=== PATIENT | male | born 1945 | race Caucasian/White ===

== ENCOUNTER 2016-06-05 11:41 | Emergency (ER) | payer OTHER ==
[~2016-06-05] VITALS: Ht 172.7 cm; Wt 81.6 kg
[2016-06-05 11:46] VITALS: BP 186/98
--- NOTE | 2016-06-05 12:12 | ED HEAD/FACIAL INJ COMPLAINT ---
History of Present Illness General Chief Complaint: Laceration Procedure Stated Complaint: HEAD LAC Source: patient, old records Exam Limitations: no limitations Vital Signs & Intake/Output Vital Signs & Intake/Output Vital Signs Date Time Temp Pulse Resp B/P Pulse O2 O2 Flow FiO2 Ox Delivery Rate 06/05 1146 97.0 99 18 186/98 100 Room Air ED Intake and Output 06/06 0000 06/05 1200 Intake Total Output Total Balance Patient 180 lb Weight Allergies Coded Allergies: peanut (Severe, ANAPHYLAXIS 06/05/16) Triage Note: 70 LACERATION TO FOREHEAD. PER NURSE SAMIR, UNABLE TO COMPLETE CRANIAL NERVE EXAM DUE TO PT BEING HARD OF HEARING - SENT TO ED FOR FURTHER EVAL AND POSSIBLE CT SCAN. PT STATES GARAGE DOOR "KICKED BACK AND HIT ME. I PUT A BAND AID ON IT BUT THEY HAVE RULES AND SENT ME HERE". NO BLEEDING NOTED ON DRESSING. PT UNSURE OF LAST TETANUS. PT ABLE TO LIP READ AND COMMUNICATE VIA WRITING WITH THIS RN. Triage Nurses Notes Reviewed? yes Onset: Abrupt Severity: mild Severity Numbers: 1 Location: frontal Method of Injury: direct blow Loss of Consciousness: no loss of consciousness Associated Symptoms: denies HPI: 70-year-old male presents emergency room status post sustaining avulsion injury to his left forehead just prior to arrival at work. He states he was standing too close to a garage door that he had lifted up and had come back down on his head. There is no loss of consciousness he did not fall to the ground. He's been complaining of mild aching pain to his forehead since. No headache he is not taken anything for symptoms no nausea no vomiting or vision changes neck or back pain. Patient states that he went to occupational health hours sent here for further workup. He states that he does not want to be here, that he feels fine and he just wants a "aspirin and to be let go" (HUGO COOK) Past History Travel History Traveled to [place] past 21 day No Medical History Any Pertinent Medical History? see below for history Neurological: NONE EENT: NONE Cardiovascular: NONE Respiratory: asthma Gastrointestinal: NONE Hepatic: NONE Renal: NONE Musculoskeletal: NONE Psychiatric: NONE Endocrine: NONE Blood Disorders: NONE Cancer(s): prostate cancer Surgical History Surgical History: none Psychosocial History What is your primary language Icelandic Tobacco Use: Never used Family History Hx Contributory? No (HUGO COOK) Review of Systems Review of Systems Constitutional: Reports: see HPI. All Other Systems: Reviewed and Negative Comments Review of systems: See HPI, All other systems negative. Constitutional, no chills no fever, no malaise HEENT: No visual changes no sore throat no congestion Cardiovascular: No chest pain , no palpitation Skin, no rashes, no change in skin Respiratory: No dyspnea no cough no sputum GI: No nausea no vomiting, no diarrhea, : No dysuria Muscle skeletal: No joint pain, no back pain, no neck pain, Neurologic: No numbness no headache Psych: No stress Heme/endocrine: No bruising no bleeding Immunology: No lymphadenopathy (HUGO COOK) Physical Exam Physical Exam General Appearance: well developed/nourished, no apparent distress, alert Cranial Nerves: normal hearing, normal speech, PERRL Comments: Well-developed well-nourished patient in no apparent distress. Head/Face: 1 cm superficial skin abrasion avulsion noted to the left forehead there is no scalp hematoma no active bleeding nontender no deformity versus scalp and face are atraumatic no raccoon eyes or maldonado signs, no maxillary/ frontal sinus tenderness, no facial swelling Eyes: PERRL, EOMI, no conjunctival injection. No nystagmus Ear:External auditory canal and Tympanic membranes clear, no erythema, no FB. No hemotympanum Nose: atraumatic.Normal inspection: No bleeding, no septal hematoma Throat: Moist mucous membranes.Pharynx normal. No pharyngeal erythema/exudate seen. No stridor/drooling or assymetry. No swelling or edema. Neck: Supple, no lymphadenopathy, FROM Back: FROM, Nontender Cardiovascular: Regular rate and rhythms Respiratory: No respiratory distress. Patient speaking in full complete sentences. Breath sounds clear to auscultation bilaterally: NO W/R/R Extremities: full range of motion Neuro: Alert and oriented x3 Skin: Warm & dry;No appreciable rash on exposed skin Psych: Mood affect normal, normal memory normal judgment. (HUGO COOK) Progress Differential Diagnosis: c-spine injury, facial fracture, globe injury, ICH, skull fracture Plan of Care: Current Medications Sig/Tree Start time Last Medication Dose Stop Time Status Admin Ibuprofen 800 MG ONCE ONE 06/05 1230 UNVr (Motrin) 06/05 1231 Tetanus/Diphtheria 0.5 ML ONCE ONE 06/05 1230 UNVr Toxoids Adsorbed 06/05 1231 (Decavac) Patient states she was sent here for CAT scan however is refusing a discussed with him given his injury nontender no headache no loss of consciousness no nausea no vomiting or change in his mental status that I do not believe at this point he would warn 1 however if he begins to exhibit headaches nausea vomiting or any other symptoms that I discussed with him need to return immediately Tylenol Motrin. Bacitracin sterile dressing was applied. I answered all his questions and he feels comfortable with this plan tetanus IM ordered (HUGO COOK) Departure Departure Time of Disposition: 1216 Disposition: HOME OR SELF CARE Condition: Stable Clinical Impression Primary Impression: Skin avulsion Secondary Impressions: Minor head injury Referrals: KEYNETTA CHAVEZ,JÚNIOR Hinton (PCP/Family) Additional Instructions: Rest, ice, Tylenol Motrin as needed. Follow-up with yourr primary care physician, returns to ER anytime sooner if your symptoms worsen you develop headache nausea vomiting vision changes or any other concerns Departure Forms: Customer Survey General Discharge Information (HUGO COOK) PA/SMALL EQUIPMENT OPERATOR Co-Sign Statement Statement: ED Attending supervision documentation- [X] I saw and evaluated the patient. I have also reviewed all the pertinent lab results and diagnostic results. I agree with the findings and the plan of care as documented in the PA's/SMALL EQUIPMENT OPERATOR's documentation. [X] I have reviewed the ED Record and agree with the PA's/SMALL EQUIPMENT OPERATOR's documentation. [] Additions or exceptions (if any) to the PAs/SMALL EQUIPMENT OPERATOR's note and plan are summarized below: [] (MICHELLE CHAVEZ,ROBERTO)
== END 2016-06-05 12:44 ==
LOC: ERH 11:41
DX: S01.81XA Laceration without foreign body of other part of head, initial encounter (principal); S09.90XA Unspecified injury of head, initial encounter; W22.8XXA Striking against or struck by other objects, initial encounter
CPT/HCPCS: 90471; 90714

== ENCOUNTER 2017-04-28 12:07 | Inpatient (IN) | payer OTHER ==
[~2017-04-28] VITALS: Ht 172.7 cm; Wt 82.8 kg
--- NOTE | 2017-04-28 12:53 | ED SYNCOPE COMPLAINT ---
History of Present Illness General Chief Complaint: Syncope and Near-Syncope Stated Complaint: BIBA SYNCOPE Source: patient, family Exam Limitations: physical impairment (DEAF) Allergies Coded Allergies: peanut (Severe, ANAPHYLAXIS 04/28/17) Triage Note: PT LEO FROM WORK AT [employer]. PER REPORT OF EMS OTHER STAFF HEARD A THUMP AND FOUND HIM ON THE FLOOR DAZED. EMS REPORT THAT THEY WERE TOLD THAT HE HAD BEEN SEWING AT THE TIME OF INCIDENT. ALSO PER EMS PATIENT WAS INITIALLY DIAPHORETIC, HAD COMPLAINED OF CHEST PAIN AND WAS GIVEN 324 MG ASA. F/S 324 FOR EMS. PT ALERT AND ORIENTED ON ARRIVAL. READS LIPS OR WRITTEN WORD FOR COMMUNICATING HE IS DEAF. PT COMPLAINS ONLY OF PAIN TO BACK OF R UPPER LEG. RATES PAIN 8-10. STATES PAIN STARTED AFTER THE FALL. PATIENT STATES THAT HE WAS WALKING OUT OF THE BATHROOM WHEN HE TRIPPED AND FELL. DENIES HITTING HEAD. DENIES FEELING DIZZY OR LIGHTHEADED BEFORE FALLING BUT DID AFTER FALL. JOHN VELAZQUEZ INTO EVALUATE PATIENT ON ARRIVAL TO ER. EKG DONE BY [facility]. PATIENT SISTERS AT BEDSIDE. Triage Nurses Notes Reviewed? yes Timing: recent history Precipitating Factors: none Loss of Consciousness: unsure HPI: 71-year-old male comes into the emergency room for further evaluation of syncopal episode that occurred at work. The story is unclear and we are getting a mixture of different stories. According to ambulance they report the people at work heard a thud and found the patient in the next room on the ground unresponsive and not alert at all. Ambulance was called. According to the gauge maker apprentice when the S crew arrived on scene the patient was unresponsive but had a pulse and was disoriented. Patient is deaf and history is somewhat limited. Patient reports that she tripped. There were reports of chest pain on scene but he denies any chest pain currently. Denies any fever chills vomiting. Patient is unsure whether he had any loss of consciousness. Patient's primary complaint is right leg pain that started after the fall. (Julio Cesar LOPEZ,P[place]) Vital Signs & Intake/Output Vital Signs & Intake/Output Vital Signs Date Time Temp Pulse Resp B/P B/P Pulse O2 O2 Flow FiO2 Mean Ox Delivery Rate 04/28 1345 Room Air Room Air 04/28 1211 97.5 88 20 101/64 99 Room Air (Dolores CHAVEZ,Tasha Arrington) Past History Travel History Traveled to [place] past 21 day No Medical History Any Pertinent Medical History? 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 No (P[place] Disla) Review of Systems Review of Systems Constitutional: Reports: no symptoms. EENTM: Reports: no symptoms. Respiratory: Reports: no symptoms. Cardiovascular: Reports: no symptoms. GI: Reports: no symptoms. Genitourinary: Reports: no symptoms. Musculoskeletal: Reports: see HPI. Skin: Reports: no symptoms. Neurological/Psychological: Reports: no symptoms. All Other Systems: Reviewed and Negative ([place] Disla) Physical Exam Physical Exam General Appearance: well developed/nourished, no apparent distress, alert, awake Head: atraumatic, normal appearance Eyes: Bilateral: normal appearance. Ears, Nose, Throat: normal ENT inspection, hearing grossly normal Neck: normal inspection Respiratory: normal breath sounds, no respiratory distress Cardiovascular: regular rate/rhythm Back: normal inspection Extremities: normal inspection, SOFT TISSUE TENDERNESS OVER RIGHT LEG, LIMITED RANGE OF MOTION, Psychiatric: awake, alert, oriented x 3 Cranial Nerves: normal hearing, normal speech, PERRL Coordination/Gait: normal gait Motor/Sensory: no motor/sensory deficits Skin: intact, normal color Core Measures ACS in differential dx? Yes CVA/TIA Diagnosis: No Sepsis Present: No Sepsis Focused Exam Completed? No ([place] Disla) Progress Differential Diagnosis: AMI, aortic dissection, aortic valve, drug induced syncope, hyperventilation, orthostatic syncope, other valvular disease, pacemaker malfunction, pericardial tamponade, pulmonary embolus, seizure, sick sinus syndrome, subarachnoid hem., TIA/CVA, vasodepressor syncope, ventricular tach/fib Diagnostic Imaging: Viewed by Me: Radiology Read, CT Scan. Discussed w/RAD: Radiology Read, CT Scan. Radiology Impression: PATIENT: NICK SANTIZO PRESENT AGE: 71 PATIENT ACCOUNT NO: [id number] : 47 LOCATION: [facility] ORDERING PHYSICIAN: [place] LOPEZ SERVICE DATE: 04/28/17 EXAM TYPE: RAD - XRY-AP PELVIS; XRY-CHEST XRAY, TWO VIEWS; XRY-HIP 2-3 VIEWS, RIGHT EXAMINATION: XR PELVIS XR RIGHT HIP XR CHEST CLINICAL INFORMATION: Trauma. Fall. Evaluate for fracture. COMPARISON: None TECHNIQUE: Frontal and lateral views of the chest performed on 3 images. Frontal and lateral views of the right hip performed on 3 images. Frontal view of the pelvis. FINDINGS: CHEST X-RAY: The cardiomediastinal silhouette is enlarged. Lungs bilaterally are symmetrically expanded and demonstrate low lung volumes with mild bibasilar subsegmental atelectasis. No focal consolidation, effusion or pneumothorax is seen. Diffuse osteopenia is seen with multilevel moderate vertebral spurring in the mid and lower thoracic spine. Mild degenerative changes as seen at the glenohumeral and acromioclavicular joints. Mild gaseous distention of the stomach and bowel loops in the upper abdomen is noted. No definite acute fracture of the thoracic spine or the visualized ribs is seen. PELVIS AND RIGHT HIP: The bony pelvis is intact. No acute fracture or dislocation is seen. Both hip joints are normally located and intact. No significant degenerative changes in the hips are seen. There are mild degenerative changes seen at the sacroiliac joints bilaterally. Pubic symphysis is intact. IMPRESSION: 1. Enlarged cardiac mediastinal silhouette. 2. Low lung volumes with mild bibasilar subsegmental atelectasis. 3. Degenerative changes in the spine and shoulders. No definite acute fracture is seen in the chest. 4. No fracture of the pelvis or right hip. 5. Mild degenerative change at the sacroiliac joints. DICTATED BY: Ashlyn Harvey MD DATE/TIME DICTATED:04/28 VIOLIN REPAIRER:ERENDIRA DATE/TIME TRANSCRIBED:04/28/171415 CONFIDENTIAL, DO NOT COPY WITHOUT APPROPRIATE AUTHORIZATION. <Electronically signed in Other Vendor System> SIGNED BY: Ashlyn Harvey MD 04/28/17 1424 , PATIENT: NICK SANTIZO PRESENT AGE: 71 PATIENT ACCOUNT NO: [id number] : 47 LOCATION: [facility] ORDERING PHYSICIAN: [place] LOPEZ SERVICE DATE: 04/28/17 EXAM TYPE: CAT - CT HEAD WO IV CONTRAST EXAMINATION: CT HEAD WITHOUT CONTRAST CLINICAL INFORMATION: Fall. Pain. Rule out trauma. COMPARISON: None TECHNIQUE: Contiguous axial imaging was performed from the skull base to vertex without intravenous administration of contrast. DLP: 620.92 mGy-cm FINDINGS: There is no evidence of acute intracranial hemorrhage or territorial infarction. No abnormal mass effect or midline shift is seen. Irvin to white matter differentiation is well preserved. No extra-axial fluid collections are identified. The ventricles and sulci are mildly enlarged, consistent with involutional changes. Diffuse mild periventricular deep white matter low-attenuation is seen, consistent with ischemic small vessel disease. Calcification of the anterior falx is seen, possibly due to a small subdural meningioma (series 2, image 27). The patient is status post bilateral lens extractions. The osseous structures and soft tissues are normal. Mild mucosal thickening of the ethmoid air cells, frontal sinuses and right axillary sinus is seen. Small nasal septal spur is seen projecting into the right nasal cavity. The mastoid air cells and visualized portions of the paranasal sinuses are otherwise unremarkable. IMPRESSION: 1. No acute intracranial pathology. 2. Mild involutional changes and findings of ischemic small vessel disease. 3. Calcification of the anterior falx, possibly due to small subdural meningioma. 4. Mild mucosal disease in the sinuses as discussed above. DICTATED BY: Ashlyn Harvey MD DATE/TIME DICTATED:04/28/171344 VIOLIN REPAIRER:ERENDIRA DATE/TIME TRANSCRIBED:04/28/171344 CONFIDENTIAL, DO NOT COPY WITHOUT APPROPRIATE AUTHORIZATION. <Electronically signed in Other Vendor System> SIGNED BY: Ashlyn Harvey MD 04/28/17 1357 Initial ED EKG: normal sinus rhythm, rate (84) (Julio Cesar LOPEZ,[place]) Plan of Care: Orders Procedure Date/time Status Heart Healthy Diet 04/[address] in observation 04/28 1432 Active ED Holding Orders 04/28 1432 Active Vital Signs 04/28 1432 Active Code Status 04/28 1432 Active Telemetry/Balancing Machine Set Up Worker 04/28 1209 Active TROPONIN LEVEL 04/28 120 Complete COMPREHENSIVE METABOLIC PANEL 04/28 1209 Complete CBC WITHOUT DIFFERENTIAL 04/28 1208 Complete EKG 04/28 1208 Active Laboratory Tests 04/28/17 1300: Anion Gap 13, Estimated GFR > 60, BUN/Creatinine Ratio 22.2, Glucose 124 H, Calcium 8.9, Total Bilirubin 0.5, AST 29, ALT 20 L, Alkaline Phosphatase 95, Troponin I < 0.01, Total Protein 7.1, Albumin 3.9, Globulin 3.2, Albumin/ Globulin Ratio 1.2, CBC w Diff NO MAN DIFF REQ, RBC 4.50 L, MCV 87.2, MCH 28.9, MCHC 33.2, RDW 13.5, MPV 7.3 L, Gran % 62.9, Lymphocytes % 21.8, Monocytes % 14.0 H, Eosinophils % 0.9, Basophils % 0.4, Absolute Granulocytes 3.2, Absolute Lymphocytes 1.1 L, Absolute Monocytes 0.7 H, Absolute Eosinophils 0, Absolute Basophils 0 (Tasha Bernal MD) Departure Departure Disposition: STILL A PATIENT Condition: Stable Clinical Impression Primary Impression: Syncope and collapse Referrals: Vera CHAVEZ,Monica Hinton (PCP/Family) Departure Forms: Customer Survey General Discharge Information (P[place] Disla) Observation Note Spoke With: Giuliana Land MD Physician Advisor Notified: TASHA BERNAL MD Place Patient In: Non-ED OBS Care Area Rationale for Observation: My rational for observation is as follows [TELE MONITORING, CARDIOLOGY CONSULTAITON, SERIAL ENZYMES]. PA/CHISELER HEAD Co-Sign Statement Statement: ED Attending supervision documentation- [X] I saw and evaluated the patient. I have also reviewed all the pertinent lab results and diagnostic results. I agree with the findings and the plan of care as documented in the PA's/CHISELER HEAD's documentation. [X] I have reviewed the ED Record and agree with the PA's/CHISELER HEAD's documentation. [] Additions or exceptions (if any) to the PAs/CHISELER HEAD's note and plan are summarized below: [] (Tasha Bernal MD) ED Attending Observation Initial Observation Note: I have seen and personally examined NICK SANTIZO on 04/28/17 at 1340. I agree with the current emergency department documentation. The disposition (admission or discharge) is uncertain at this time, he needs a period of observation for the following reason(s): The ED Nurse caring for this patient has been personally informed as to what the patient is being observed for. ([place] Disla)
[2017-04-28 13:26] LABS: ABSOLUTE BASOPHIL COUNT 0 /CUMM (0.0-0.2); ABSOLUTE EOSINOPHIL COUNT 0 /CUMM (0.0-0.7); ABSOLUTE GRANULOCYTE CT 3.2 /CUMM (1.4-6.5); ABSOLUTE LYMPH COUNT 1.1 /CUMM (1.2-3.4); ABSOLUTE MONOCYTE COUNT 0.7 /CUMM (0.10-0.60); BASOPHIL % 0.4 % (0.0-2.0); EOSINOPHIL % 0.9 % (0-5); GRANULOCYTE % 62.9 % (42.2-75.2); HEMATOCRIT 39.3 % (42-52); MEAN CORPUSCULAR HGB 28.9 PG (27.0-31.0); MEAN CORPUSCULAR HGB CONC 33.2 G/DL (33.0-37.0); MEAN CORPUSCULAR VOLUME 87.2 FL (80.0-94.0); MEAN PLATELET VOLUME 7.3 FL (7.4-10.4); PLATELET COUNT 190 /CUMM (130-400); RBC DISTRIBUTION WIDTH 13.5 % (11.5-14.5); WHITE BLOOD CELL COUNT 5.2 /CUMM (4.8-10.8)
--- NOTE | 2017-04-28 13:57 | CT SCAN REPORT ---
EXAMINATION: CT HEAD WITHOUT CONTRAST CLINICAL INFORMATION: Fall. Pain. Rule out trauma. COMPARISON: None TECHNIQUE: Contiguous axial imaging was performed from the skull base to vertex without intravenous administration of contrast. DLP: 620.92 mGy-cm FINDINGS: There is no evidence of acute intracranial hemorrhage or territorial infarction. No abnormal mass effect or midline shift is seen. Irvin to white matter differentiation is well preserved. No extra-axial fluid collections are identified. The ventricles and sulci are mildly enlarged, consistent with involutional changes. Diffuse mild periventricular deep white matter low-attenuation is seen, consistent with ischemic small vessel disease. Calcification of the anterior falx is seen, possibly due to a small subdural meningioma (series 2, image 27). The patient is status post bilateral lens extractions. The osseous structures and soft tissues are normal. Mild mucosal thickening of the ethmoid air cells, frontal sinuses and right axillary sinus is seen. Small nasal septal spur is seen projecting into the right nasal cavity. The mastoid air cells and visualized portions of the paranasal sinuses are otherwise unremarkable. IMPRESSION: 1. No acute intracranial pathology. 2. Mild involutional changes and findings of ischemic small vessel disease. 3. Calcification of the anterior falx, possibly due to small subdural meningioma. 4. Mild mucosal disease in the sinuses as discussed above.
--- NOTE | 2017-04-28 14:24 | RADIOLOGY REPORT ---
EXAMINATION: XR PELVIS XR RIGHT HIP XR CHEST CLINICAL INFORMATION: Trauma. Fall. Evaluate for fracture. COMPARISON: None TECHNIQUE: Frontal and lateral views of the chest performed on 3 images. Frontal and lateral views of the right hip performed on 3 images. Frontal view of the pelvis. FINDINGS: CHEST X-RAY: The cardiomediastinal silhouette is enlarged. Lungs bilaterally are symmetrically expanded and demonstrate low lung volumes with mild bibasilar subsegmental atelectasis. No focal consolidation, effusion or pneumothorax is seen. Diffuse osteopenia is seen with multilevel moderate vertebral spurring in the mid and lower thoracic spine. Mild degenerative changes as seen at the glenohumeral and acromioclavicular joints. Mild gaseous distention of the stomach and bowel loops in the upper abdomen is noted. No definite acute fracture of the thoracic spine or the visualized ribs is seen. PELVIS AND RIGHT HIP: The bony pelvis is intact. No acute fracture or dislocation is seen. Both hip joints are normally located and intact. No significant degenerative changes in the hips are seen. There are mild degenerative changes seen at the sacroiliac joints bilaterally. Pubic symphysis is intact. IMPRESSION: 1. Enlarged cardiac mediastinal silhouette. 2. Low lung volumes with mild bibasilar subsegmental atelectasis. 3. Degenerative changes in the spine and shoulders. No definite acute fracture is seen in the chest. 4. No fracture of the pelvis or right hip. 5. Mild degenerative change at the sacroiliac joints.
[2017-04-28] MEDS ORDERED: ADVAIR 500-501 EACH INH (15:37)
[2017-04-28] MEDS ORDERED: PROAIR RESPICL90 MCG INH (15:37)
[2017-04-28] MEDS ORDERED: QUINAPRIL HCL40 M1 PO (15:37)
[2017-04-28] MEDS ORDERED: CRESTOR10 M1 PO (15:38)
[2017-04-28] MEDS ORDERED: TIZANIDINE HCL2 M1 PO (15:38)
[2017-04-28] MEDS ORDERED: VITAMIN D1000 UNIT PO (15:45)
[2017-04-28] MEDS ORDERED: VITAMIN B-121000 MC3 PO (15:45)
--- NOTE | 2017-04-28 16:03 | History & Physical ---
Palomo Centeno 04/28/17 1603: General Information and HPI History of Present Illness: Mr. Santizo is a 71 yo m deaf (can read lips) with a PMH of HTN, asthma, Prostate ca BIBA for syncope. Patient poor historian. Patient reports around 1 PM at work he went to use the bathroom to urinate and on his way out he fell and does not recall the events that took place after that. He denies any similar episode in the past. 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 Patient reports since he has had a nonproductive cough and chills. He also reports poor appetite but he attributes that to coming home late from work and usually not hungry at that time. He also reports he was recently placed on Tizanidine for back spasms. As per ED documentation EMS reports patient was diaphoretic and had CP he was given 1 full dose ASA. He denies SOB, CP, blurry vision, nausea, vomiting, paresthesias, jerky movements, urinary or bowel incontinence. Allergies/Medications Allergies: Coded Allergies: peanut (Severe, ANAPHYLAXIS 04/28/17) nut - unspecified (ANAPHYLAXIS 04/28/17) Home Med list Albuterol Sulfate (Proair Respiclick) 90 MCG AER.POW.BA 2 PUFF INH AD PRN RESP. (Reported) Cholecalciferol (Vitamin D3) (Vitamin D) (Unknown Strength) TABLET (Unknown Dose) PO DAILY SUPPLEMENT (Reported) Cyanocobalamin (Vitamin B-12) (Unknown Strength) TABLET (Unknown Dose) PO DAILY SUPPLEMENT (Reported) Fluticasone/Salmeterol (Advair 500-50 Diskus) 500 MCG-50 MCG/DOSE BLST.W.DEV 1 PUF INH BID RESP. 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 Exam & Diagnostic Data Last 24 Hrs of Vital Signs/I&O Vital Signs Date Time Temp Pulse Resp B/P B/P Pulse O2 O2 Flow FiO2 Mean Ox Delivery Rate 04/28 1444 97.2 89 18 117/66 97 Room Air 04/28 1345 Room Air Room Air 04/28 1211 97.5 88 20 101/64 99 Room Air Intake & Output 04/28 1600 04/28 0800 04/28 0000 Intake Total Output Total Balance Patient 180 lb Weight Weight Reported by Patient Measurement Method Physical Exam General Appearance Alert, Oriented X3, Cooperative, No Acute Distress HEENT Atraumatic, PERRLA, EOMI, dry mucous membranes Neck Supple, No JVD, No thryomegaly Cardiovascular Regular Rate, Normal S1, Normal S2, No Murmurs Lungs Clear to Auscultation, Normal Air Movement Abdomen Normal Bowel Sounds, Soft, No Tenderness Neurological Strength at 5/5 X4 Ext, Normal Tone, Sensation Intact, Cranial Nerves 3-12 NL Extremities proximal RLE pain with active and passive movement. No ecchymosis seen, skin intact Last 24 Hrs of Labs/Titus: Laboratory Tests 04/28/17 1300: Anion Gap 13, Estimated GFR > 60, BUN/Creatinine Ratio 22.2, Glucose 124 H, Calcium 8.9, Total Bilirubin 0.5, AST 29, ALT 20 L, Alkaline Phosphatase 95, Troponin I < 0.01, Total Protein 7.1, Albumin 3.9, Globulin 3.2, Albumin/ Globulin Ratio 1.2, CBC w Diff NO MAN DIFF REQ, RBC 4.50 L, MCV 87.2, MCH 28.9, MCHC 33.2, RDW 13.5, MPV 7.3 L, Gran % 62.9, Lymphocytes % 21.8, Monocytes % 14.0 H, Eosinophils % 0.9, Basophils % 0.4, Absolute Granulocytes 3.2, Absolute Lymphocytes 1.1 L, Absolute Monocytes 0.7 H, Absolute Eosinophils 0, Absolute Basophils 0 Diagnostic Data EKG Results T wave inversions aVR, V1 HR 84 QTc 445 Other Results XRY-AP PELVIS; XRY-CHEST XRAY, TWO VIEWS; XRY-HIP 2-3 VIEWS, RIGHT IMPRESSION: 1. Enlarged cardiac mediastinal silhouette. 2. Low lung volumes with mild bibasilar subsegmental atelectasis. 3. Degenerative changes in the spine and shoulders. No definite acute fracture is seen in the chest. 4. No fracture of the pelvis or right hip. 5. Mild degenerative change at the sacroiliac joints. CT HEAD WO IV CONTRAST IMPRESSION: 1. No acute intracranial pathology. 2. Mild involutional changes and findings of ischemic small vessel disease. 3. Calcification of the anterior falx, possibly due to small subdural meningioma. 4. Mild mucosal disease in the sinuses as discussed above. Assessment/Plan Assessment: Mr. Santizo is a 71 yo m with a PMH of deafness (can read lips), HTN, Asthma, Prostate Ca BIBA for syncope. Possible Syncope Differentials include dehydration versus seizure, arrythmia, CVA * Place on telemetry for 23 hour observation * Serial TROP/ECG to r/o ACS * ECHO to r/o SHD and/or RWMA * Vitals q shift * Orthostatics * Neuro checks q 4 * Cardio consult * Neuro consult * Continue home meds except Tizanidine Influenza * Start Oseltamivir 75 mg BID x 5 days DVT prophylaxis: Code: FULL As Ranked By This Provider Problem List: 1. Syncope and collapse Core Measures/Misc (11/05) Acute Coronary Syndrome ACS Diagnosis: No Congestive Heart Failure Congestive Heart Failure Diagnosis No Cerebrovascular Accident CVA/TIA Diagnosis: No VTE (View Protocol) VTE Risk Factors Age>40 No Mechanical VTE Prophylaxis d/t N/A MechProphylax Ordered No VTE Pharm Prophylaxis d/t NA PharmProphylax ordered Sepsis (View protocol) Sepsis Present: No Dwayne CHAVEZ,[facility] 04/28/17 1614: Resident Review Statement Resident Statement: examined this patient, discussed with corporate development intern Other Findings: H: Mr Santizo is a 71-year-old gentleman with past medical history of hypertension, prostate cancer status post prostatectomy and asthma who was brought in by ambulance on 04/28/2017 after a syncopal episode at the place of his work. Episode occurred at approximately 12 PM in the afternoon. Patient works at [employer] in [place]. History obtained from patient's work and sister states that the patient had a fall and thereafter had a tough time responding to verbal cues. During this episode he was also noted to be pale and be in distress owing to pain developed in his right lower extremity. It is unclear whether the patient experieced a loss of consciousness. States that over the last 48 hours he has been feeling weak and has had decreased by mouth intake. Also endorses a nonproductive cough and symptoms of a URI. The patient also endorsed some muscular spasms and was started on Tizanidine on 04/26/2017. 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 Patient's sister can be reached on [phone]. Since primary care physician is Dr Katie Gamez Patient's urologist is Dr. Clarence Lux. Patient lives alone at home and is independent. FH: Mother: HTN and DM. Father: Cancer Social Histroy: - smoker, -EtOh, - Illicit Drug use. R: Review of systems the patient endorsed chills, however denied any fever nausea, vomiting. He did endorse some right-sided leg pain. E T: 97.5 RR: 20. Blood pressure 101/64. Heart rate 88. General Appearance: well developed/nourished, no apparent distress, alert, awake Head: atraumatic, normal appearance Eyes:Bilateral: normal appearance. Ears, Nose, Throat: normal ENT inspection. Neck: normal inspection Respiratory: normal breath sounds, no respiratory distress, Increased breathsounds LLL Cardiovascular: regular rate/rhythm Back: normal inspection Extremities: normal inspection. LL: Strength 5/5. RLE: Strength 3/5. No evidence of any trauma. Psychiatric: awake, alert, oriented x 3 Cranial Nerves: normal hearing, normal speech, PERRL Coordination/Gait: normal gait Motor/Sensory: no motor/sensory deficits Skin: intact, normal color L WBC 5.2. H&H 13 and 39.3. Platelets 190. Sodium 134. Potassium 3.9. BUN: 20. Creatinine 0.9. I Mr Santizo is a 71-year-old gentleman with past medical history of hypertension, prostate cancer status post prostatectomy and asthma who was brought in by ambulance on 04/28/2017 after a syncopal episode at the place of his work. #Syncope, likley due to orthostatic hypotension in the setting of acute illness, decreased PO intake and recent new medication. #Influenza Positive #History of hypertension #History of Asthma #Leg Pain #Syncope, likley due to orthostatic hypotension in the setting of acute illness and decreased PO intake. Serial Troponins and EKG Obtain Cardiolgy consultation, formal recommendation to follow in am. Formal Neurology consultation Echocardiogram to r/o WMA and EF Hold Tizanidine as this can cause hypotension and Bradycardia # Influenza Positive Continue Tamiful 75 mg BID. Will likely require five day coverage. #History of hypertension If patients BP more stable, continue home medication from 04/29/2017 # History of Asthma Tr Nebs Incentive Spirometer Continue Symbicort Continue Ventolin 40 mg # Leg Pain Pain Control with IV tylenol. May consider PO morphine for breakthrough DVT PPX: Lovenox Diet: Heart Healthy Patient is a full code *POA will bring in documentation in the AM* EmeryGiuliana 04/28/17 1657: Observation Initial Note - I have personally examined NICK SANTIZO on 04/28/17 at 1658. The disposition of DARLYNNICK Katie is uncertain at this time and before a determination can be made, he requires a period of observation for the following reasons [] Attending MD Review Statement Attending Statement Attending MD Statement: examined this patient, discuss w/resident/PA/VICE PRESIDENT OF COMPLIANCE, agreed w/resident/PA/VICE PRESIDENT OF COMPLIANCE, discussed with family, reviewed EMR data (avail), discussed with nursing, discussed with case mgmt, reviewed images, amended to note Attending Assessment/Plan: 71 O/M with hypertension, asthma, deafness, prosatte cancer s/p prostactemy comes with LOC and possible syncope. He does not recall events. Patient presenting c/o URI symtoms and decreased PO intake. Flu positive. CT with small subdural meningioma. Patient c/o right lower extremity pain. Patient is admitted for syncope likely from infection related and dehydration r/ o cardiogenic causes r/o DVT. Monitor on telemetry, serial cardiac enzymes, ECHO , orthostats, Neurology consult, cardiology consult. Obtain USG lower extremity. Resume home meds except tizanidine. gi/dvt prophylaxis full code.
[2017-04-28 17:39] VITALS: BP 118/64
[2017-04-28 23:17] VITALS: BP 98/58
[2017-04-29 05:33] LABS: ABSOLUTE BASOPHIL COUNT 0 /CUMM (0.0-0.2); ABSOLUTE EOSINOPHIL COUNT 0 /CUMM (0.0-0.7); ABSOLUTE GRANULOCYTE CT 6.2 /CUMM (1.4-6.5); ABSOLUTE LYMPH COUNT 0.6 /CUMM (1.2-3.4); ABSOLUTE MONOCYTE COUNT 0.5 /CUMM (0.10-0.60); BASOPHIL % 0 % (0.0-2.0); EOSINOPHIL % 0.1 % (0-5); GRANULOCYTE % 84.8 % (42.2-75.2); MEAN CORPUSCULAR HGB 29.7 PG (27.0-31.0); MEAN CORPUSCULAR VOLUME 87.3 FL (80.0-94.0); MEAN PLATELET VOLUME 7.5 FL (7.4-10.4); PLATELET COUNT 213 /CUMM (130-400); RBC DISTRIBUTION WIDTH 14.1 % (11.5-14.5); RED BLOOD CELL CT 3.87 /CUMM (4.70-6.10)
[2017-04-29 05:47] LABS: HEMATOCRIT 33.8 % (42-52)
[2017-04-29 05:57] LABS: WHITE BLOOD CELL COUNT 7.3 /CUMM (4.8-10.8)
[2017-04-29 06:49] VITALS: BP 130/80
[2017-04-29 08:51] VITALS: BP 110/60
--- NOTE | 2017-04-29 10:04 | Cons- Cardiology ---
General Information and HPI Consulting Request Date of Consult: 04/29/17 Requested By: Giuliana Land MD History of Present Illness: This patient is a 71 year old male with history of hypertension, asthma and deafness. He was seen in the ER after a fall suspected to be a syncopal event. He went to the bathroom to urinate and on his way out tripped on a table hitting his right leg. He denies chest discomfort although chest discomfort was reported to the ER. He denies shortness of breath or palpitations. It should be noted that he was recently started on Tizanidine for back spasms. At the present time the patient is tachycardic and complains of severe right thigh discomfort with decreased ability to move his leg secondary to discomfort. He has reported a non -productive cough with chills and poor appetite. Allergies/Medications Allergies: Coded Allergies: peanut (Severe, ANAPHYLAXIS 04/28/17) nut - unspecified (ANAPHYLAXIS 04/28/17) Home Med List: Albuterol Sulfate (Proair Respiclick) 90 MCG AER.POW.BA 2 PUFF INH AD PRN RESP. (Reported) Cholecalciferol (Vitamin D3) (Vitamin D) (Unknown Strength) TABLET (Unknown Dose) PO DAILY SUPPLEMENT (Reported) Cyanocobalamin (Vitamin B-12) (Unknown Strength) TABLET (Unknown Dose) PO DAILY SUPPLEMENT (Reported) Fluticasone/Salmeterol (Advair 500-50 Diskus) 500 MCG-50 MCG/DOSE BLST.W.DEV 1 PUF INH BID RESP. (Reported) Quinapril HCl 40 MG TABLET 1 TAB PO BID BP (Reported) Rosuvastatin Calcium (Crestor) 10 MG TABLET 1 TAB PO DAILY CHOLESTEROL ( Reported) Tizanidine HCl 2 MG TABLET 1 TAB PO TID PRN MUSCLE SPASMS (Reported) Review of Systems Review of Systems: A review of systems is unremarkable. 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 Surgical History Surgical History: 1 Psychosocial History Smoking Status: Never Smoked ETOH Use: denies use Illicit Drug Use: denies illicit drug use Exam & Diagnostic Data Vital Signs and I&O Vital Signs Date Time Temp Pulse Resp B/P B/P Pulse O2 O2 Flow FiO2 Mean Ox Delivery Rate 04/29 0851 98.7 127 110/60 04/29 0800 95 Room Air 04/29 0649 98.8 100 18 130/80 95 Room Air 04/29 0000 Room Air 04/28 2317 99.7 103 18 98/58 96 Room Air 04/28 1926 Room Air 04/28 1739 97.4 94 18 118/64 98 Room Air 04/28 1644 98.9 100 18 122/84 97 Room Air 04/28 1444 97.2 89 18 117/66 97 Room Air 04/28 1345 Room Air Room Air 04/28 1211 97.5 88 20 101/64 99 Room Air Intake & Output 04/29 1600 04/29 0800 04/29 0000 04/28 1600 04/28 0800 04/28 0000 Intake Total 470 120 Output Total 450 450 Balance 20 -330 Intake, IV 350 Intake, Oral 120 120 Output, Urine 450 450 Patient 179 lb 180 lb Weight Weight Bed scale Reported by Patient Measurement Method Physical Exam: General: WD/WN male in NAD; alert and orientes x 3 HEENT: NC/AT, PERRL, EOMI Neck: no JVD, no carotid bruit Heart: tachycardic with regular rhythm, no murmurs Lungs: clear bilaterally Abdomen: soft, NT, +ve bowel sounds Extremities: right thigh is firm, swollen and with decreased range of motion Assessment/Plan Assessment/Plan * Patient is now tachycardic but has become anemic. He is not short of breath and albuteral has not been recently used. Thyroid function tests are WNL. His tachycardia may be related to the anemia or discomfort in his RLE. It may also be related to acutely stopping Tizanidine. Continue to monitor on telemetry. I would obtain a D-dimer and ABG. If either are abnormal then obtain a CT angiogram to evaluate for a PE. Obtain an ultrasound of the RLE which is swollen and very painful to assess for a DVT. * The patient's syncope may be related to a vagal event, dehydration, seizure, dysrhythmia or PE. Check orthostatic blood pressure. Agree with stopping Tizanidine. Assess for thrombus in the patient's RLE by ultrasound. If there is not source of pain or reason for it then consider a CVA as the cause of leg weakness. Patient can move his leg but it appears weak and he tends to use his hands to move it. This may, of course, by just do to the pain of moving it. Consult Acknowledgment - Thank you for your consult request.
--- NOTE | 2017-04-29 12:05 | ULTRASOUND REPORT ---
EXAMINATION: RIGHT LOWER EXTREMITY VENOUS DOPPLER ULTRASOUND CLINICAL INFORMATION: Right lower extremity swelling. Evaluate for DVT. Pain. COMPARISON: None. TECHNIQUE: Doppler spectral analysis and color flow Doppler imaging was performed of the right lower extremity. Compression and augmentation maneuvers were performed. FINDINGS: The right common femoral vein and greater saphenous vein takeoff are patent and unremarkable. Low-level echoes are seen within the femoral vein with only partial compressibility of the lumen demonstrated and only minimal residual flow seen with color Doppler imaging. Findings are consistent with a nonocclusive deep venous thrombosis. There is also an occlusive thrombus within the popliteal vein. The midcalf peroneal and posterior tibial veins are not visualized. The left common femoral vein is previously interrogated and is patent with normal color flow demonstrated. No popliteal cyst is seen. IMPRESSION: Positive deep venous thrombosis in the right lower extremity involving the femoral vein and popliteal vein.
--- NOTE | 2017-04-29 13:12 | Cons- Neurology ---
General Information and HPI Consulting Request Date of Consult: 04/29/17 Requested By: Giuliana Land MD History of Present Illness: 71-year-old male admitted following an unwitnessed fall. 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 He was apparently exiting from the bathroom when he fell, questionably hitting his leg against the table, per the chart. There are no first-hand witnesses to describe the fall. He was initially said to be "unresponsive", duration unclear. No involuntary movements were reported. He has no prior history of syncope, seizure or significant head trauma. Allergies/Medications Allergies: Coded Allergies: peanut (Severe, ANAPHYLAXIS 04/28/17) nut - unspecified (ANAPHYLAXIS 04/28/17) Home Med List: Albuterol Sulfate (Proair Respiclick) 90 MCG AER.POW.BA 2 PUFF INH AD PRN RESP. (Reported) Cholecalciferol (Vitamin D3) (Vitamin D) (Unknown Strength) TABLET (Unknown Dose) PO DAILY SUPPLEMENT (Reported) Cyanocobalamin (Vitamin B-12) (Unknown Strength) TABLET (Unknown Dose) PO DAILY SUPPLEMENT (Reported) Fluticasone/Salmeterol (Advair 500-50 Diskus) 500 MCG-50 MCG/DOSE BLST.W.DEV 1 PUF INH BID RESP. (Reported) Quinapril HCl 40 MG TABLET 1 TAB PO BID BP (Reported) Rosuvastatin Calcium (Crestor) 10 MG TABLET 1 TAB PO DAILY CHOLESTEROL ( Reported) Tizanidine HCl 2 MG TABLET 1 TAB PO TID PRN MUSCLE SPASMS (Reported) Review of Systems Review of Systems: Notable for right leg pain, chronic deafness. He had some recent neck pain for which he was started on an anti-spasmodic agent. There were no reports of diplopia, dysarthria, dysphagia, chest pain, palpitations, shortness of breath, abnormal bleeding, fever or chills. 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 Surgical History Surgical History: 1 Psychosocial History Smoking Status: Never Smoked ETOH Use: denies use Illicit Drug Use: denies illicit drug use Exam & Diagnostic Data Vital Signs and I&O Vital Signs Date Time Temp Pulse Resp B/P B/P Pulse O2 O2 Flow FiO2 Mean Ox Delivery Rate 04/29 0851 98.7 127 110/60 04/29 0800 95 Room Air 04/29 0649 98.8 100 18 130/80 95 Room Air 04/29 0000 Room Air 04/28 2317 99.7 103 18 98/58 96 Room Air 04/28 1926 Room Air 04/28 1739 97.4 94 18 118/64 98 Room Air 04/28 1644 98.9 100 18 122/84 97 Room Air 04/28 1444 97.2 89 18 117/66 97 Room Air 04/28 1345 Room Air Room Air Intake & Output 04/29 1600 04/29 0800 04/29 0000 Intake Total 470 120 Output Total 450 450 Balance 20 -330 Intake, IV 350 Intake, Oral 120 120 Output, Urine 450 450 Patient 179 lb Weight Weight Bed scale Measurement Method Middle-aged male who is awake, alert and in no acute distress. The head was normocephalic and atraumatic. Pupils were equal. Extraocular movements were full. Face was symmetric. Hearing was markedly impaired. He needed to communicate via the written word. Tongue was midline. There was no drift of the upper extremities. There was no upper extremity weakness. He appeared to have antalgic weakness of the proximal right lower extremity which was tense and swollen. Deep tendon reflexes were symmetric. Plantar responses were flexor. Sensory examination was normal to light touch. The gait was not evaluated. CT scan of the head showed no acute abnormalities. There was a small calcification of the anterior falx which may suggest a small meningioma Assessment/Plan Assessment: #1 unwitnessed fall, questionably syncopal after arising from the toilet. Although seizure is in the differential diagnosis, at present this is considered unlikely. #2 painful's, swollen proximal right lower extremity. One would wish to rule out a DVT or a deep hemorrhage which at present is not visible on the surface. #3 small calcification of the falx which is likely an incidental finding Recommendations: #1 cardiology consultation #2 EEG #3 further evaluation of his swollen, painful proximal right lower extremity. We defer to general medicine in this regard. #4 physical therapy to return to optimal, baseline locomotion once we have sorted out the cause of his swollen right leg Please feel free to call with any further questions. Consult Acknowledgment - Thank you for your consult request.
--- NOTE | 2017-04-29 14:04 | CT SCAN REPORT ---
EXAMINATION: CT CHEST PE STUDY CLINICAL INFORMATION: Syncope. Positive DVT. Rule out PE. Wells score greater than 6. COMPARISON: Right lower extremity venous Doppler ultrasound dated 04/29/2017. Chest x-ray dated 04/28/2017. TECHNIQUE: Prior to contrast administration, localization images were obtained. After the administration of 65 and mL of intravenous Optiray 320, multidetector CT volume acquisition of the chest was performed. 3-D postprocessing was performed with multiplanar reconstructions and MIP images obtained at the acquisition workstation under concurrent physician supervision. DLP: 391.98 mGy-cm. FINDINGS: Pulmonary arteries: The bolus timing on this study was acceptable for visualization of the pulmonary arterial tree. There are no suspicious intraluminal pulmonary arterial filling defects present to suggest pulmonary embolism in the main pulmonary artery, right and left main pulmonary artery, lobar and segmental branches. In a segmental branch of the right upper lobe (series 2, image 154), an apparent small filling defect is seen. This appears to represent artifact related to extensive beam hardening when viewed on the multiple multiplanar reformations. Lungs: The lungs show mild scattered atelectatic changes in the lungs bilaterally. No significant pulmonary nodules, masses, pleural effusion or pneumothorax. The central airways are patent. Aorta and heart: The heart is normal in size. There may be a left anterior descending coronary artery stent in place versus prominent arterial calcifications. Ascending aorta is aneurysmal, measuring 4 cm in maximal AP diameter at the level of the right main pulmonary artery. The descending aorta at the same level measures 2.4 cm and the aortic arch just beyond the takeoff of the left subclavian artery measures 2.7 cm. There is no pericardial effusion Lymphatic structures: There is no lymphadenopathy. Upper abdomen: 1.3 cm accessory splenule is seen along the anterior margin of the spleen and 1.1 cm accessory splenule is seen in the splenic hilar region. Diffuse atrophy and fatty infiltration of the pancreas is noted. Limited evaluation of the upper abdominal viscera demonstrates no other focal abnormality. Bones: Moderate vertebral spondylosis seen in the mid and lower thoracic spine. No suspicious focal findings. IMPRESSION: 1. No definite pulmonary embolism is seen. Small filling defect within a segmental branch of the right upper lobe is most consistent with beam hardening artifact as discussed above. 2. Mild scattered atelectatic changes in the lungs bilaterally. 3. No adenopathy. 4. Aneurysmal ascending aorta with maximal AP diameter of 4 cm. Left anterior descending coronary artery stent versus coronary calcifications. 5. Diffuse atrophy and fatty infiltration of the pancreas.
--- NOTE | 2017-04-29 14:15 | PN- Att Addend ---
Attending Addendum Attending Brief Note 71 O/M with hypertension, asthma, deafness, prosatte cancer s/p prostactemy comes with LOC and possible syncope. He does not recall events. Patient presenting c/o URI symtoms and decreased PO intake. Flu positive. CT with small subdural meningioma. Patient c/o right lower extremity pain Patient seen/exmained bedside. Sisters bedside. Denies any new complaints. USG positive for lower extremity DVT. Plan to obtain CTA chest r/o PE. he is on room air and heparin drip. Patient is admitted for right Lower extremity DVT r/o PE and syncope from possible infection and dehydration related flu. Monitor on telemetry, negative serial cardiac enzymes, ECHO as per cards, Neurology consulted and recommend EEG , cardiology appreciated. Obtain CTA chest r/o PE. gi/dvt prophylaxis full code. Plan of care d/wed patient and family bedside. Admission Lab Results I reviewed the following labs: Laboratory Tests 04/29 04/29 04/29 04/28 1053 [id number] 2017 Chemistry Sodium (137 - 145 mmol/L) 132 L Potassium (3.5 - 5.1 mmol/L) 4.0 Chloride (98 - 107 mmol/L) 100 Carbon Dioxide (22 - 30 mmol/L) 19 L Anion Gap (5 - 16) 13 BUN (9 - 20 mg/dL) 27 H Creatinine (0.7 - 1.2 mg/dL) 0.9 Estimated GFR (>60 ml/min) > 60 BUN/Creatinine Ratio (7 - 25 %) 30.0 H Troponin I (<0.11 ng/ml) < 0.01 < 0.01 Coagulation D-Dimer High Sensitivty (0 - 243 ng/ml) 289 H Hematology CBC w Diff NO MAN DIFF REQ WBC (4.8 - 10.8 /CUMM) 7.3 RBC (4.70 - 6.10 /CUMM) 3.87 L Hgb (14.0 - 18.0 G/DL) 11.5 L Hct (42 - 52 %) 33.8 L MCV (80.0 - 94.0 FL) 87.3 MCH (27.0 - 31.0 PG) 29.7 MCHC (33.0 - 37.0 G/DL) 34.0 RDW (11.5 - 14.5 %) 14.1 Plt Count (130 - 400 /CUMM) 213 MPV (7.4 - 10.4 FL) 7.5 Gran % (42.2 - 75.2 %) 84.8 H Lymphocytes % (20.5 - 51.1 %) 8.7 L Monocytes % (1.7 - 9.3 %) 6.4 Eosinophils % (0 - 5 %) 0.1 Basophils % (0.0 - 2.0 %) 0 Absolute Granulocytes (1.4 - 6.5 /CUMM) 6.2 Absolute Lymphocytes (1.2 - 3.4 /CUMM) 0.6 L Absolute Monocytes (0.10 - 0.60 /CUMM) 0.5 Absolute Eosinophils (0.0 - 0.7 /CUMM) 0 Absolute Basophils (0.0 - 0.2 /CUMM) 0 04/28 1628 Serology Virus Culture Pending Admission Meds I reviewed the following Meds: Current Medications Sig/Tere Start time Last Medication Dose Stop Time Status Admin Acetaminophen 1,000 MG Q12 PRN 04/28 1815 AC 04/29 (Ofirmev) 0002 Albuterol Sulfate 2 PUF Q4 HRS NEEDED PRN 04/29 0315 AC (Ventolin) Albuterol Sulfate 3 ML Q4 HRS NEEDED PRN 04/29 0200 AC (Proventil) Atorvastatin Calcium 40 MG 1700 04/28 1700 AC 04/28 (Lipitor) 2041 Budesonide/ 2 PUF BID 04/28 2200 AC 04/29 Formoterol Fumarate 0851 (Symbicort) Heparin Sodium 25,000 UNIT Q24H 04/29 1245 AC (Porcine) (Heparin) Sodium Chloride 500 ML Morphine Sulfate 2 MG Q6P PRN 04/29 0415 AC 04/29 (MORPHINE SULFATE) 1028 Oseltamivir Phosphate 75 MG BID 04/28 2199 AC 04/29 (Tamiflu 75MG) 05/02 215 0841 Oxycodone HCl 5 MG Q6P PRN 04/29 0415 AC 04/29 (Roxicodone) 0643
[2017-04-29 16:42] VITALS: BP 118/62
[2017-04-29 22:10] LABS: PTT 62 SEC (25-37)
[2017-04-29 23:01] VITALS: BP 130/62
--- NOTE | 2017-04-30 07:17 | ECHOCARDIOGRAM REPORT ---
NICK SANTIZO Age: 71 : 1945 Gender: M Exam Date: 04/29/2017 10:23 Exam Location: [address] Ht (in): 68 Wt (lb): 180 BSA: 2.00 BP: 130 / 80 Ordering Physician: Misael Rice MD Referring Physician: Dangelo Shirley MD, PhD Technologist: Yanni Saenz [facility] Room Number: 188 Indications: LIGHTHEADEDNESS Rhythm: Sinus Technical Quality: good FINDINGS Left Ventricle Normal left ventricular size with mild left ventricular hypertrophy. Normal systolic function with no obvious regional wall motion abnormalities. Diastolic filling pattern is consistent with impaired LV relaxation. The ejection fraction is visually estimated at 70%. Right Ventricle The right ventricle is normal in size and function. Right Atrium The right atrium is normal in size. Left Atrium The left atrium is normal in size. The interatrial septum is intact. Mitral Valve The mitral valve is normal in structure and function. There is trace mitral regurgitation. Aortic Valve Structurally normal aortic valve without significant sclerosis or stenosis. There is trace aortic regurgitation. Tricuspid Valve The tricuspid valve is normal in structure and function. There is no tricuspid regurgitation. Pulmonic Valve Structurally normal pulmonic valve. There is no pulmonic regurgitation. Pericardium Normal pericardium without effusion. No pleural effusion. Great Vessels Normal aortic root dimension. The aortic arch and great vessels are well seen and are normal. CONCLUSIONS 1. Normal EF of 70% with impaired LV relaxation. 2. Mild left ventricular hypertrophy. 3. Trace mitral regurgitation. 4. Trace aortic regurgitation. Dangelo Shirley M.D. (Electronically Signed) Final Date: 30 April 2017 07:16 MEASUREMENTS (Male / Female) Normal Values 2D ECHO LV Diastolic Diameter PLAX 4.0 cm 4.2 - 5.9 / 3.9 - 5.3 cm LV Systolic Diameter PLAX 2.5 cm 2.1 - 4.0 cm LV Fractional Shortening PLAX 37.5 % 25 - 46 % LV Ejection Fraction 2D Teich 68.1 % IVS Diastolic Thickness 1.3 cm LVPW Diastolic Thickness 1.3 cm LV Relative Wall Thickness 0.7 RV Internal Dim ED PLAX 2.0 cm 1.9 - 3.8 cm LVOT Diameter 2.1 cm Aortic Root Diameter 3.3 cm LA Systolic Diameter LX 3.3 cm 3.0 - 4.0 / 2.7 - 3.8 cm LA Volume 28.0 cm 18 - 58 / 22 - 52 cm DOPPLER AV Peak Velocity 151.0 cm/s AV Peak Gradient 9.1 mmHg AV Mean Velocity 102.0 cm/s AV Mean Gradient 5.0 mmHg AV Velocity Time Integral 19.6 cm LVOT Peak Velocity 91.9 cm/s LVOT Peak Gradient 3.4 mmHg LVOT Mean Velocity 60.6 cm/s LVOT Mean Gradient 2.0 mmHg LVOT Velocity Time Integral 12.7 cm LVOT Stroke Volume 44.0 cm AV Area Cont Eq vti 2.2 cm AV Area Cont Eq pk 2.1 cm MV Peak Velocity 148.0 cm/s MV Peak Gradient 8.8 mmHg MV Mean Velocity 71.9 cm/s MV Mean Gradient 3.0 mmHg Mitral E Point Velocity 59.2 cm/s Mitral A Point Velocity 109.0 cm/s Mitral E to A Ratio 0.5 MV PHT Velocity 94.5 cm/s MV Deceleration Imperial 538.0 cm/s MV Pressure Half Time 52.7 ms MV Area PHT 4.2 cm MV Deceleration Time 132.0 ms PV Peak Velocity 132.0 cm/s PV Peak Gradient 7.0 mmHg PV Mean Velocity 78.2 cm/s PV Mean Gradient 3.0 mmHg PV Velocity Time Integral 18.3 cm LV E' Lateral Velocity 5.0 cm/s Mitral E to LV E' Lateral Ratio 11.8 LV E' Septal Velocity 2.6 cm/s Mitral E to LV E' Septal Ratio 22.5
--- NOTE | 2017-04-30 07:29 | PN- Housestaff ---
See Addendum Subjective Follow-up For: Fall Syncope RLE DVT Tele-Events Since Last Visit: Sinus tach, PVC HR 105-151 Subjective: Patient reports persistent RLE pain and tightness Review of Systems Constitutional: Reports: see HPI. Objective Last 24 Hrs of Vital Signs/I&O Vital Signs Date Time Temp Pulse Resp B/P B/P Pulse O2 O2 Flow FiO2 Mean Ox Delivery Rate 04/30 0730 99.5 108 22 140/70 95 Room Air 04/30 0000 95 Room Air Room Air 04/29 2301 99.1 115 20 130/62 94 Room Air 04/29 2035 97 Room Air 04/29 1642 98.5 125 22 118/62 95 Room Air 04/29 1600 95 Room Air 04/29 1230 95 Room Air 04/29 0851 98.7 127 110/60 Intake & Output 04/30 1600 04/30 0800 04/30 0000 Intake Total 308 622 Output Total 100 160 Balance 208 462 Intake, IV 208 52 Intake, Oral 100 570 Number 0 Bowel Movements Output, Other 10 Output, Urine 100 150 Patient 188 lb Weight Weight Bed scale Measurement Method Physical Exam General Appearance: Alert, Oriented X3, Cooperative, No Acute Distress Cardiovascular: Regular Rate, Normal S1, Normal S2, No Murmurs, Gallops, Rubs Lungs: Clear to Auscultation, Normal Air Movement Extremities: Proximal RLE skin tightness, warmth. No ecchymosis seen Current Medications: Current Medications Sig/Tree Start time Last Medication Dose Route Stop Time Status Admin Acetaminophen 1,000 MG Q12 PRN 04/28 1815 AC 04/29 IV 0002 Albuterol Sulfate 2 PUF Q4 HRS NEEDED PRN 04/29 0315 AC INH Albuterol Sulfate 3 ML Q4 HRS NEEDED PRN 04/29 0200 AC INH Atorvastatin Calcium 40 MG 1700 04/28 1700 AC 04/29 PO 1637 Budesonide/ 2 PUF BID 04/28 2200 AC 04/30 Formoterol Fumarate INH 0815 Enoxaparin Sodium 40 MG DAILY@2100 04/29 2100 DC SC Heparin Sodium 25,000 UNIT Q24H 04/29 1245 AC 04/29 (Porcine) IV 1408 Sodium Chloride 500 ML Morphine Sulfate 2 MG Q6P PRN 04/29 0415 AC 04/29 IV 2020 Ondansetron HCl 4 MG ONCE ONE 04/29 1530 DC 04/29 IV 04/29 1531 1536 Oseltamivir Phosphate 75 MG BID 04/28 2200 AC 04/30 PO 05/02 2159 0812 Oxycodone HCl 5 MG Q6P PRN 04/29 0415 AC 04/30 PO 0815 Last 24 Hrs of Lab/Titus Results Last 24 Hrs of Labs/Mics: Laboratory Tests 04/30/17 0645: Anion Gap 11, Estimated GFR > 60, BUN/Creatinine Ratio 32.2 H, CBC w Diff Pending, WBC Pending, RBC Pending, Hgb Pending, Hct Pending, MCV Pending, MCH Pending, MCHC Pending, RDW Pending, Plt Count Pending, MPV Pending 04/29/17 2030: APTT 62 H 04/29/17 1058: D-Dimer High Sensitivty 289 H Assessment/Plan Assessment: Mr. 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 Anemia * iron studies * rpt CBC to monitor H&H * GI consult Fall with Syncope * Serial TROP/ECG to r/o ACS negative * ECHO demonstrated diastolic filling pattern is consistent with impaired LV relaxation. EF at 70%. * Orthostatics negative * Neuro checks q 4 * Cardio recommendations appreciated * Neuro recommendations appreciated * Continue home meds except Tizanidine * EEG pending RLE DVT * Doppler US demonstrated a deep venous thrombosis in the right lower extremity involving the femoral vein and popliteal vein. * Continue IV Heparin * Guaiac positive Influenza * Continue Oseltamivir 75 mg BID day 2/ DVT prophylaxis: IV Heparin Code: FULL Problem List: 1. DVT (deep venous thrombosis) 2. Syncope and collapse Pain Ratin Pain Location: RLE Pain Goal: Pain 4 or less Pain Plan: Morphine Tomorrow's Labs & Rationales: CBC for anemia BEP for hyponatremia
[2017-04-30 07:30] VITALS: BP 140/70
[2017-04-30 08:23] LABS: ABSOLUTE BASOPHIL COUNT 0 /CUMM (0.0-0.2); ABSOLUTE EOSINOPHIL COUNT 0 /CUMM (0.0-0.7); ABSOLUTE LYMPH COUNT 1.3 /CUMM (1.2-3.4); EOSINOPHIL % 0 % (0-5); RBC DISTRIBUTION WIDTH 13.7 % (11.5-14.5)
[2017-04-30 08:54] LABS: ABSOLUTE GRANULOCYTE CT 7.3 /CUMM (1.4-6.5); ABSOLUTE MONOCYTE COUNT 1.1 /CUMM (0.10-0.60); BASOPHIL % 0.4 % (0.0-2.0); GRANULOCYTE % 74.9 % (42.2-75.2); MEAN CORPUSCULAR HGB 29.9 PG (27.0-31.0); MEAN CORPUSCULAR HGB CONC 33.8 G/DL (33.0-37.0); MEAN CORPUSCULAR VOLUME 88.4 FL (80.0-94.0); MEAN PLATELET VOLUME 7.9 FL (7.4-10.4); PLATELET COUNT 264 /CUMM (130-400); WHITE BLOOD CELL COUNT 9.8 /CUMM (4.8-10.8)
[2017-04-30 08:59] LABS: HEMATOCRIT 27.4 % (42-52)
[2017-04-30 09:54] LABS: PTT 45 SEC (25-37)
[2017-04-30 14:42] LABS: ABSOLUTE BASOPHIL COUNT 0 /CUMM (0.0-0.2); ABSOLUTE EOSINOPHIL COUNT 0 /CUMM (0.0-0.7); ABSOLUTE GRANULOCYTE CT 9.4 /CUMM (1.4-6.5); ABSOLUTE MONOCYTE COUNT 1.1 /CUMM (0.10-0.60); BASOPHIL % 0.1 % (0.0-2.0); EOSINOPHIL % 0 % (0-5); GRANULOCYTE % 81.5 % (42.2-75.2); HEMATOCRIT 26.3 % (42-52); MEAN CORPUSCULAR HGB 29.6 PG (27.0-31.0); MEAN CORPUSCULAR VOLUME 87.1 FL (80.0-94.0); MEAN PLATELET VOLUME 8.2 FL (7.4-10.4); PLATELET COUNT 293 /CUMM (130-400); RBC DISTRIBUTION WIDTH 13.8 % (11.5-14.5); RED BLOOD CELL CT 3.01 /CUMM (4.70-6.10); WHITE BLOOD CELL COUNT 11.5 /CUMM (4.8-10.8)
[2017-04-30 14:47] VITALS: BP 170/82
[2017-04-30 16:30] VITALS: BP 130/80
--- NOTE | 2017-04-30 19:44 | PN- Cardiology ---
Subjective Subjective: * Leg discomfort has lessened. No shortness of breath. Objective Vital Signs and I&Os Vital Signs Date Time Temp Pulse Resp B/P B/P Pulse O2 O2 Flow FiO2 Mean Ox Delivery Rate 04/30 1630 113 130/80 04/30 1447 97.1 118 20 170/82 96 Room Air 04/30 1119 94 Room Air Room Air 04/30 0730 99.5 108 22 140/70 95 Room Air 04/30 0000 95 Room Air Room Air 04/29 2301 99.1 115 20 130/62 94 Room Air 04/29 2035 97 Room Air Intake & Output 04/30 1600 04/30 0800 04/30 0000 04/29 1600 04/29 0800 04/29 0000 Intake Total 600 308 622 720 470 120 Output Total 200 100 160 450 450 Balance 400 208 462 720 20 -330 Intake, IV 208 52 350 Intake, Oral 600 100 570 720 120 120 Number 0 Bowel Movements Output, 200 Emesis Output, Other 10 Output, Urine 100 150 450 450 Patient 188 lb 179 lb Weight Weight Bed scale Bed scale Measurement Method Physical Exam: General: WD/WN male in NAD; alert and orientes x 3 HEENT: NC/AT, PERRL, EOMI Neck: no JVD, no carotid bruit Heart: tachycardic with regular rhythm, no murmurs Lungs: clear bilaterally Abdomen: soft, NT, +ve bowel sounds Extremities: right thigh is firm, swollen and with decreased range of motion Assessment/Plan Assessment/Plan * Patient remains mildly tachycardic but is increasingly anemic. In consideration of his DVT he will need anticoagulation. Begin IV heparin and observe for bleeding. If his H/H stablizes then begin oral anticoagulation. If anemia becomes worse a thorough anemia workup and GI consult will need to be pursued. * The patient's syncope may be related to a vagal event, dehydration, seizure, dysrhythmia or PE. Orthostatic blood pressure was normal but done remotely after his admission and fall. Agree with obtaining an EEG. Agree with stopping Tizanidine. Continue telemetry? Yes
--- NOTE | 2017-04-30 19:48 | Cons- Gastroenterology ---
General Information and HPI Consulting Request Date of Consult: 04/30/17 (MD YAJAIRA/GASTROENTEROLOGY) Requested By: Luiz CHAVEZ,Martinez Aburto Reason for Consult: Hematemesis Source of Information: patient, family, old records Exam Limitations: physical impairment ( deaf) History of Present Illness: The patient was admitted with syncope versus seizure. There is been no history of GI illness, nor significant antecedent symptoms such as heartburn, dysphagia, nausea, dyspepsia, abdominal pain, or abnormal bowel habits. There is no history of GI bleeding. He has had regular colon cancer screening, elsewhere. Patient takes aspirin but no NSAIDs. The patient was found to have a deep venous thrombosis and started on intravenous heparin. Today he developed nausea, and vomited several times, described variably as brown to black. His hematocrit has dropped. There has been no melena or red blood per rectum. There's been no syncope, dizziness/ lightheadedness, diaphoresis, chest pain, abdominal pain. Allergies/Medications Allergies: Coded Allergies: peanut (Severe, ANAPHYLAXIS 04/28/17) nut - unspecified (ANAPHYLAXIS 04/28/17) Home Med List: Albuterol Sulfate (Proair Respiclick) 90 MCG AER.POW.BA 2 PUFF INH AD PRN RESP. (Reported) Cholecalciferol (Vitamin D3) (Vitamin D) (Unknown Strength) TABLET (Unknown Dose) PO DAILY SUPPLEMENT (Reported) Cyanocobalamin (Vitamin B-12) (Unknown Strength) TABLET (Unknown Dose) PO DAILY SUPPLEMENT (Reported) Fluticasone/Salmeterol (Advair 500-50 Diskus) 500 MCG-50 MCG/DOSE BLST.W.DEV 1 PUF INH BID RESP. (Reported) Quinapril HCl 40 MG TABLET 1 TAB PO BID BP (Reported) Rosuvastatin Calcium (Crestor) 10 MG TABLET 1 TAB PO DAILY CHOLESTEROL ( Reported) Tizanidine HCl 2 MG TABLET 1 TAB PO TID PRN MUSCLE SPASMS (Reported) Current Medications: Current Medications Sig/Tree Start time Last Medication Dose Route Stop Time Status Admin Acetaminophen 1,000 MG Q12 PRN 04/28 1815 AC 04/29 IV 0002 Albuterol Sulfate 2 PUF Q4 HRS NEEDED PRN 04/29 0315 AC INH Albuterol Sulfate 3 ML Q4 HRS NEEDED PRN 04/29 0200 AC INH Atorvastatin Calcium 40 MG 1700 04/28 1700 AC 04/30 PO 1733 Budesonide/ 2 PUF BID 04/28 2200 AC 04/30 Formoterol Fumarate INH 0815 Dextrose/Water 1,000 ML ONCE ONE 04/30 1630 AC 04/30 IV 05/02 0149 1636 Enoxaparin Sodium 40 MG DAILY@2100 04/29 2100 DC SC Heparin Sodium 3,400 UNIT ONCE ONE 04/30 1015 DC 04/30 (Porcine) IV 04/30 1016 1026 Heparin Sodium 5,000 UNIT .STK-MED ONE 04/30 1015 DC (Porcine) IV 04/30 1016 Heparin Sodium 25,000 UNIT Q24H 04/29 1245 DC 04/30 (Porcine) IV 0932 Sodium Chloride 500 ML Metoclopramide HCl 10 MG Q6P PRN 04/30 1700 AC 04/30 IV 1733 Morphine Sulfate 2 MG Q6P PRN 04/29 0415 AC 04/29 IV 2020 Oseltamivir Phosphate 75 MG BID 04/28 2200 AC 04/30 PO 05/02 2159 0812 Oxycodone HCl 5 MG Q6P PRN 04/29 0415 AC 04/30 PO 0815 Pantoprazole Sodium 40 MG BID 04/30 1533 AC 04/30 IV 1620 Past History Travel History Traveled to [place] past 21 day No Medical History Blood Transfusion Hx: No Neurological: NONE EENT: DEAF, READS LIPS Cardiovascular: hypertension Respiratory: asthma Gastrointestinal: NONE Hepatic: NONE Renal: NONE Musculoskeletal: NONE Psychiatric: NONE Endocrine: NONE Blood Disorders: NONE Cancer(s): prostate cancer 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 Home Smoking Status: Never Smoked ETOH Use: denies use Illicit Drug Use: denies illicit drug use Review of Systems Review of Systems Constitutional: Denies: chills, fever. EENTM: Denies: icterus, epistaxis. Cardiovascular: Reports: syncope. Denies: chest pain. Respiratory: Denies: hemoptysis, short of breath. GI: Reports: see HPI. Genitourinary: Denies: dysuria, hematuria. Musculoskeletal: Denies: muscle stiffness, neck pain. Skin: Denies: jaundice, lesions. Neurological/Psychological: Denies: cognitive dysfunction, headache. Hematologic/Endocrine: Reports: bleeding. Denies: bruising. Exam & Diagnostic Data Vital Signs and I&O Vital Signs Date Time Temp Pulse Resp B/P B/P Pulse O2 O2 Flow FiO2 Mean Ox Delivery Rate 04/30 1630 113 130/80 04/30 1447 97.1 118 20 170/82 96 Room Air 04/30 1119 94 Room Air Room Air 04/30 0730 99.5 108 22 140/70 95 Room Air 04/30 0000 95 Room Air Room Air 04/29 2301 99.1 115 20 130/62 94 Room Air 04/29 2035 97 Room Air Intake & Output 04/30 1600 04/30 0400 04/29 1600 04/29 0400 04/28 1600 04/28 0400 Intake Total 712 628 5762 120 Output Total 300 160 450 450 Balance 608 462 740 -330 Intake, IV 208 52 350 Intake, Oral 700 570 840 120 Number 0 Bowel Movements Output, 200 Emesis Output, Other 10 Output, Urine 100 150 450 450 Patient 188 lb 179 lb 180 lb Weight Weight Bed scale Bed scale Reported by Patient Measurement Method Physical Exam: Well-developed, well-nourished, in no apparent distress. Skin without jaundice, rash, stigmata of liver disease. No adenopathy. No scleral icterus or oropharyngeal lesion. Neck supple without thyromegaly or mass. Heart regular rhythm. Lungs clear. Abdomen obese, soft, normal bowel sounds; no tenderness, mass or organomegaly. Extremities without clubbing, cyanosis or edema. Normal distal pulses. Results Pertinent Lab Results: Laboratory Tests 04/30 04/30 1255 0850 Coagulation APTT (25 - 37 SEC) 45 H Hematology CBC w Diff NO MAN DIFF REQ WBC (4.8 - 10.8 /CUMM) 11.5 H RBC (4.70 - 6.10 /CUMM) 3.01 L Hgb (14.0 - 18.0 G/DL) 8.9 L Hct (42 - 52 %) 26.3 L MCV (80.0 - 94.0 FL) 87.1 MCH (27.0 - 31.0 PG) 29.6 MCHC (33.0 - 37.0 G/DL) 34.0 RDW (11.5 - 14.5 %) 13.8 Plt Count (130 - 400 /CUMM) 293 MPV (7.4 - 10.4 FL) 8.2 Gran % (42.2 - 75.2 %) 81.5 H Lymphocytes % (20.5 - 51.1 %) 8.8 L Monocytes % (1.7 - 9.3 %) 9.6 H Eosinophils % (0 - 5 %) 0 Basophils % (0.0 - 2.0 %) 0.1 Absolute Granulocytes (1.4 - 6.5 /CUMM) 9.4 H Absolute Lymphocytes (1.2 - 3.4 /CUMM) 1.0 L Absolute Monocytes (0.10 - 0.60 /CUMM) 1.1 H Absolute Eosinophils (0.0 - 0.7 /CUMM) 0 Absolute Basophils (0.0 - 0.2 /CUMM) 0 04/30 04/29 04/29 04/29 0645 2030 1050 0430 Chemistry Sodium (137 - 145 mmol/L) 129 L Potassium (3.5 - 5.1 mmol/L) 4.1 Chloride (98 - 107 mmol/L) 97 L Carbon Dioxide (22 - 30 mmol/L) 21 L Anion Gap (5 - 16) 11 BUN (9 - 20 mg/dL) 29 H Creatinine (0.7 - 1.2 mg/dL) 0.9 Estimated GFR (>60 ml/min) > 60 BUN/Creatinine Ratio (7 - 25 %) 32.2 H Troponin I (<0.11 ng/ml) < 0.01 Coagulation APTT (25 - 37 SEC) 62 H D-Dimer High Sensitivty (0 - 243 ng/ml) 289 H Hematology CBC w Diff NO MAN DIFF REQ WBC (4.8 - 10.8 /CUMM) 9.8 RBC (4.70 - 6.10 /CUMM) 3.10 L Hgb (14.0 - 18.0 G/DL) 9.3 L Hct (42 - 52 %) 27.4 L MCV (80.0 - 94.0 FL) 88.4 MCH (27.0 - 31.0 PG) 29.9 MCHC (33.0 - 37.0 G/DL) 33.8 RDW (11.5 - 14.5 %) 13.7 Plt Count (130 - 400 /CUMM) 264 MPV (7.4 - 10.4 FL) 7.9 Gran % (42.2 - 75.2 %) 74.9 Lymphocytes % (20.5 - 51.1 %) 13.1 L Monocytes % (1.7 - 9.3 %) 11.6 H Eosinophils % (0 - 5 %) 0 Basophils % (0.0 - 2.0 %) 0.4 Absolute Granulocytes (1.4 - 6.5 /CUMM) 7.3 H Absolute Lymphocytes (1.2 - 3.4 /CUMM) 1.3 Absolute Monocytes (0.10 - 0.60 /CUMM) 1.1 H Absolute Eosinophils (0.0 - 0.7 /CUMM) 0 Absolute Basophils (0.0 - 0.2 /CUMM) 0 04/29 1628 Chemistry Sodium (137 - 145 mmol/L) 132 L Potassium (3.5 - 5.1 mmol/L) 4.0 Chloride (98 - 107 mmol/L) 100 Carbon Dioxide (22 - 30 mmol/L) 19 L Anion Gap (5 - 16) 13 BUN (9 - 20 mg/dL) 27 H Creatinine (0.7 - 1.2 mg/dL) 0.9 Estimated GFR (>60 ml/min) > 60 BUN/Creatinine Ratio (7 - 25 %) 30.0 H Troponin I (<0.11 ng/ml) < 0.01 Hematology CBC w Diff NO MAN DIFF REQ WBC (4.8 - 10.8 /CUMM) 7.3 RBC (4.70 - 6.10 /CUMM) 3.87 L Hgb (14.0 - 18.0 G/DL) 11.5 L Hct (42 - 52 %) 33.8 L MCV (80.0 - 94.0 FL) 87.3 MCH (27.0 - 31.0 PG) 29.7 MCHC (33.0 - 37.0 G/DL) 34.0 RDW (11.5 - 14.5 %) 14.1 Plt Count (130 - 400 /CUMM) 213 MPV (7.4 - 10.4 FL) 7.5 Gran % (42.2 - 75.2 %) 84.8 H Lymphocytes % (20.5 - 51.1 %) 8.7 L Monocytes % (1.7 - 9.3 %) 6.4 Eosinophils % (0 - 5 %) 0.1 Basophils % (0.0 - 2.0 %) 0 Absolute Granulocytes (1.4 - 6.5 /CUMM) 6.2 Absolute Lymphocytes (1.2 - 3.4 /CUMM) 0.6 L Absolute Monocytes (0.10 - 0.60 /CUMM) 0.5 Absolute Eosinophils (0.0 - 0.7 /CUMM) 0 Absolute Basophils (0.0 - 0.2 /CUMM) 0 Serology Virus Culture Pending 04/28 1300 Chemistry Sodium (137 - 145 mmol/L) 134 L Potassium (3.5 - 5.1 mmol/L) 3.9 Chloride (98 - 107 mmol/L) 99 Carbon Dioxide (22 - 30 mmol/L) 22 Anion Gap (5 - 16) 13 BUN (9 - 20 mg/dL) 20 Creatinine (0.7 - 1.2 mg/dL) 0.9 Estimated GFR (>60 ml/min) > 60 BUN/Creatinine Ratio (7 - 25 %) 22.2 Glucose (65 - 99 mg/dL) 124 H Calcium (8.4 - 10.2 mg/dL) 8.9 Phosphorus (2.5 - 4.5 mg/dL) 4.1 Magnesium (1.6 - 2.3 mg/dL) 1.9 Total Bilirubin (0.2 - 1.3 mg/dL) 0.5 AST (17 - 59 U/L) 29 ALT (21 - 72 U/L) 20 L Alkaline Phosphatase (< 127 U/L) 95 Troponin I (<0.11 ng/ml) < 0.01 Total Protein (6.3 - 8.2 g/dL) 7.1 Albumin (3.5 - 5.0 g/dL) 3.9 Globulin (1.9 - 4.2 gm/dL) 3.2 Albumin/Globulin Ratio (1.1 - 2.2 %) 1.2 TSH (0.270 - 4.200 uIU/mL) 3.360 Free T4 (0.78 - 2.44 ng/dL) 1.00 Hematology CBC w Diff NO MAN DIFF REQ WBC (4.8 - 10.8 /CUMM) 5.2 RBC (4.70 - 6.10 /CUMM) 4.50 L Hgb (14.0 - 18.0 G/DL) 13.0 L Hct (42 - 52 %) 39.3 L MCV (80.0 - 94.0 FL) 87.2 MCH (27.0 - 31.0 PG) 28.9 MCHC (33.0 - 37.0 G/DL) 33.2 RDW (11.5 - 14.5 %) 13.5 Plt Count (130 - 400 /CUMM) 190 MPV (7.4 - 10.4 FL) 7.3 L Gran % (42.2 - 75.2 %) 62.9 Lymphocytes % (20.5 - 51.1 %) 21.8 Monocytes % (1.7 - 9.3 %) 14.0 H Eosinophils % (0 - 5 %) 0.9 Basophils % (0.0 - 2.0 %) 0.4 Absolute Granulocytes (1.4 - 6.5 /CUMM) 3.2 Absolute Lymphocytes (1.2 - 3.4 /CUMM) 1.1 L Absolute Monocytes (0.10 - 0.60 /CUMM) 0.7 H Absolute Eosinophils (0.0 - 0.7 /CUMM) 0 Absolute Basophils (0.0 - 0.2 /CUMM) 0 Assessment/Plan Assessment/Recommendations: New-onset hematemesis after starting IV heparin, with slow drop in hemoglobin, and stable vital signs. Rule out peptic ulcer disease, esophagitis. Recommendations * 2 IVs * Nothing by mouth, IV fluids * CBC tonight and in the morning; transfuse if necessary to maintain hemoglobin greater than 8 * Check INR * IV PPI twice a day * Parenteral antiemetics such as IV ondansetron, [id number] and not prn. * Agree with holding heparin. Consider IVC filter. * EGD is anticipated tomorrow * Please call GI immediately with evidence of more significant bleeding such as red hematemesis, melena, red blood per rectum, hypotension, worsening tachycardia, change in mental status. Would need to consider transfer to ICU and more urgent endoscopy at that time Copies To: Vera CHAVEZ,Monica Hinton Consult Acknowledgment - Thank you for your consult request.
[2017-04-30 22:03] VITALS: BP 150/70
[2017-05-01 00:29] LABS: ABSOLUTE BASOPHIL COUNT 0 /CUMM (0.0-0.2); ABSOLUTE EOSINOPHIL COUNT 0 /CUMM (0.0-0.7); ABSOLUTE GRANULOCYTE CT 10.2 /CUMM (1.4-6.5); ABSOLUTE LYMPH COUNT 1.1 /CUMM (1.2-3.4); ABSOLUTE MONOCYTE COUNT 1.1 /CUMM (0.10-0.60); BASOPHIL % 0.1 % (0.0-2.0); EOSINOPHIL % 0 % (0-5); GRANULOCYTE % 82.3 % (42.2-75.2); HEMATOCRIT 24.5 % (42-52); MEAN CORPUSCULAR HGB 29.6 PG (27.0-31.0); MEAN CORPUSCULAR HGB CONC 34.7 G/DL (33.0-37.0); MEAN CORPUSCULAR VOLUME 85.5 FL (80.0-94.0); PLATELET COUNT 296 /CUMM (130-400); RBC DISTRIBUTION WIDTH 13.6 % (11.5-14.5); RED BLOOD CELL CT 2.87 /CUMM (4.70-6.10); WHITE BLOOD CELL COUNT 12.4 /CUMM (4.8-10.8)
[2017-05-01 07:24] VITALS: BP 144/72
[2017-05-01 08:17] LABS: ABSOLUTE BASOPHIL COUNT 0 /CUMM (0.0-0.2); ABSOLUTE EOSINOPHIL COUNT 0 /CUMM (0.0-0.7); ABSOLUTE GRANULOCYTE CT 9.7 /CUMM (1.4-6.5); ABSOLUTE LYMPH COUNT 1.1 /CUMM (1.2-3.4); ABSOLUTE MONOCYTE COUNT 1.6 /CUMM (0.10-0.60); BASOPHIL % 0 % (0.0-2.0); EOSINOPHIL % 0 % (0-5); GRANULOCYTE % 78.2 % (42.2-75.2); HEMATOCRIT 23.4 % (42-52); MEAN CORPUSCULAR HGB 29.8 PG (27.0-31.0); MEAN CORPUSCULAR HGB CONC 34.5 G/DL (33.0-37.0); MEAN CORPUSCULAR VOLUME 86.6 FL (80.0-94.0); PLATELET COUNT 262 /CUMM (130-400); RBC DISTRIBUTION WIDTH 13.7 % (11.5-14.5); WHITE BLOOD CELL COUNT 12.4 /CUMM (4.8-10.8)
--- NOTE | 2017-05-01 08:27 | PN- Housestaff ---
Paulino CHAVEZ,Javi 05/01/17 0827: Subjective Follow-up For: Fall Syncope RLE DVT Tele-Events Since Last Visit: ST 112-118, BBB QRS .1 pr .16 Subjective: Pt currently downstairs for EGD Review of Systems Constitutional: Reports: see HPI. Objective Last 24 Hrs of Vital Signs/I&O Vital Signs Date Time Temp Pulse Resp B/P B/P Pulse O2 O2 Flow FiO2 Mean Ox Delivery Rate 05/01 1600 Room Air 05/01 1451 98.2 110 20 142/76 93 Room Air 05/01 0947 96 Room Air 05/01 0724 98.0 109 20 144/72 97 Room Air 04/30 2203 98.0 122 20 150/70 93 04/30 2138 94 Room Air Intake & Output 05/01 1600 05/01 0800 05/01 0000 Intake Total 250 250 210 Output Total 350 275 200 Balance -100 -25 10 Intake, IV 250 250 210 Intake, Oral 0 Number 2 Bowel Movements Output, Urine 350 275 200 Patient 184 lb Weight Physical Exam General Appearance: Pt currently downstairs in EGD. Will be evaluated by medical team later. Current Medications: Current Medications Sig/Tree Start time Last Medication Dose Route Stop Time Status Admin Acetaminophen 1,000 MG Q12 PRN 04/28 1815 AC 04/29 IV 0002 Albuterol Sulfate 2 PUF Q4 HRS NEEDED PRN 04/29 0315 AC INH Albuterol Sulfate 3 ML Q4 HRS NEEDED PRN 04/29 0200 DC INH Atorvastatin Calcium 40 MG 1700 04/28 1700 AC 05/01 PO 1830 Budesonide/ 2 PUF BID 04/28 2200 AC 05/01 Formoterol Fumarate INH 1337 Dextrose/Water 1,000 ML ONCE ONE 04/30 1630 AC 04/30 IV 05/02 0149 1636 Ioversol 0 .STK-MED ONE 05/01 1138 DC IV Lidocaine 0 .STK-MED ONE 05/01 1138 DC .ROUTE Lidocaine 2 EDMAR .STK-MED ONE 05/01 1042 DC TOP 05/01 1043 Lidocaine 50 ML .STK-MED ONE 05/01 1042 DC TOP 05/01 1043 Metoclopramide HCl 10 MG Q6P PRN 04/30 1700 AC 04/30 IV 1733 Metoprolol Tartrate 12.5 MG BID 03/13 2200 AC PO Morphine Sulfate 2 MG Q6P PRN 04/29 414 AC 04/29 IV 2020 Oseltamivir Phosphate 75 MG BID 04/28 2199 AC 05/01 PO 05/02 Oxycodone HCl 5 MG Q6P PRN 04/29 414 AC 04/30 PO 213 Pantoprazole Sodium 40 MG BID 04/30 1533 AC 05/01 IV 1336 Trimethobenzamide HCl 200 MG 4 TIMES/DAY 05/01 1000 AC 05/01 IM 1830 Last 24 Hrs of Lab/Titus Results Last 24 Hrs of Labs/Mics: Laboratory Tests 05/01/17 1715: CBC w Diff NO MAN DIFF REQ, RBC 2.67 L, MCV 87.1, MCH 29.3, MCHC 33.7, RDW 13.7 , MPV 7.3 L, Gran % 79.7 H, Lymphocytes % 8.6 L, Monocytes % 11.6 H, Eosinophils % 0, Basophils % 0.1, Absolute Granulocytes 10.2 H, Absolute Lymphocytes 1.1 L, Absolute Monocytes 1.5 H, Absolute Eosinophils 0, Absolute Basophils 0 05/01/17 1430: PT 14.7 H, INR 1.34 H 05/01/17 0700: Anion Gap 14, Estimated GFR > 60, BUN/Creatinine Ratio 40.0 H, Iron 58, TIBC 290, Ferritin 354.0, Vitamin B12 310, Folate 7.4, CBC w Diff NO MAN DIFF REQ, RBC 2.70 L, MCV 86.6, MCH 29.8, MCHC 34.5, RDW 13.7, MPV 8.0, Gran % 78.2 H, Lymphocytes % 9.2 L, Monocytes % 12.6 H, Eosinophils % 0, Basophils % 0, Absolute Granulocytes 9.7 H, Absolute Lymphocytes 1.1 L, Absolute Monocytes 1.6 H, Absolute Eosinophils 0, Absolute Basophils 0 05/01/17 0000: CBC w Diff Cancelled, WBC Cancelled, RBC Cancelled, Hgb Cancelled, Hct Cancelled , MCV Cancelled, MCH Cancelled, MCHC Cancelled, RDW Cancelled, Plt Count Cancelled, MPV Cancelled 04/30/17 2345: CBC w Diff NO MAN DIFF REQ, RBC 2.87 L, MCV 85.5, MCH 29.6, MCHC 34.7, RDW 13.6 , MPV 8.0, Gran % 82.3 H, Lymphocytes % 8.6 L, Monocytes % 9.0, Eosinophils % 0, Basophils % 0.1, Absolute Granulocytes 10.2 H, Absolute Lymphocytes 1.1 L, Absolute Monocytes 1.1 H, Absolute Eosinophils 0, Absolute Basophils 0 Assessment/Plan Assessment: Mr. 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 Anemia * iron studies, folate b12 WNL * rpt CBC to monitor H&H * Pt currently getting EGD * hgb goal >8 * cont IV PPI BID * tigan scheduled as qtc >450 * holding heparin per GI although cardiology wants heparin yesterday * f/u post egd recommendations by GI (05/01 recs) Fall with Syncope * Serial TROP/ECG to r/o ACS negative * ECHO demonstrated diastolic filling pattern is consistent with impaired LV relaxation. EF at 70%. * Orthostatics negative * Neuro checks q 4 * Cardio recommendations appreciated * Neuro recommendations appreciated * Continue home meds except Tizanidine * EEG normal RLE DVT * Doppler US demonstrated a deep venous thrombosis in the right lower extremity involving the femoral vein and popliteal vein. * HOLDING IV Heparin * Guaiac positive * f/u cardiology recs (05/01/17) Hyponaremia * remains stable * cont to monitor Influenza * Continue Oseltamivir 75 mg BID day 2 * consider stopping per GI DVT prophylaxis: IV Heparin Code: FULL Problem List: 1. DVT (deep venous thrombosis) 2. Syncope and collapse Pain Ratin Pain Location: unable to asses, pt in EGD Pain Goal: Pain 4 or less Pain Plan: pain pathway Tomorrow's Labs & Rationales: cbc bep Martinez Dee 05/01/17 1437: Attending MD Review Statement Attending Statement Attending MD Statement: examined this patient, discuss w/resident/PA/MESMERIST, agreed w/resident/PA/MESMERIST, reviewed EMR data (avail), discussed with nursing, discussed with case mgmt Attending Assessment/Plan: pt underwent EGD which showed Mallorw Mcgregor tear and pt underwent IVC filter placement. doing stable. cont to monitor H/H and protonix for now. appreciated GI input. d/w pt the care plan.
--- NOTE | 2017-05-01 09:59 | Proc Note Endoscopy ---
Endoscopy Procedure Procedure Date: 05/01/17 Procedure Type: EGD Patient Attendant: Angelito Lewis M.D. ASA Classification: III Indications: Hematemesis Anemia Instrument: diagnostic gastroscope Meds Received: SANDOVAL Patient's Tolerance: good Complications: none Extent Reached: second part of duodenum Procedure: The patient signed informed consent, and was medicated. Lidocaine pharyngeal spray was administered. Pulse oximetry, blood pressure and cardiac monitoring were performed continuously throughout the procedure. The Olympus high- definition gastroscope was inserted into the mouth and advanced to the duodenum. Retroflexion was performed within the stomach to examine the cardia. Careful examination was performed. Findings: The esophagus had normal caliber and contour. There were no varices. The mucosa was intact throughout. The GE junction at 40 cm was normal. There was an enlarged fold of the cardia. Retroflexion demonstrated a small tear in this area, which was friable. The stomach had normal distention and active peristalsis. The mucosa and folds were normal throughout. There was no fresh nor old blood in the gastric cavity. The pyloric channel was normal. In the duodenal bulb there was a slightly enlarged erythematous fold, but no ulcer or erosion. The mucosa and folds of the duodenal sweep were normal. Impression: * Kaylen-Mcgregor tear * No active bleeding, nor old blood Recommendations: * Jrcxrd-kff-vanza antiemetic therapy, such as ondansetron 4 mg every 4 hours ( today) while awake * Reattempt liquid diet * Consider stopping Tamiflu; nausea and vomiting are most common side effects * Follow-up CBC tonight and in the morning * Given rising BUN, increase IV fluids * Agree with IVC filter, as would not begin anticoagulation yet at this time
--- NOTE | 2017-05-01 13:14 | INTERVENTIONAL RADIOLOGY RPT ---
CLINICAL HISTORY: This patient is a 71-year-old male with right lower extremity DVT with contraindication to anticoagulation, who presents to Interventional Radiology for pulmonary embolus prophylaxis. PROCEDURES: 1. Real-time ultrasound-guided access into the right internal jugular vein after documentation of selected vessel patency, and permanent imaging storing in the patient records. 2. Inferior venacavogram. 3. IVC filter placement. PHYSICIANS: Dr. Flakito Purdy (attending). MONITORING: Continuous blood pressure, pulse oximetry as well as heart rate monitoring was performed by an independent registered nurse. MEDICATIONS: Lidocaine 1%, 10 mL SQ. CONTRAST: 40 mL Optiray 320 FLUOROSCOPY TIME: 2 minutes 0 seconds DAP: 21.2 uGym2 COMPLICATIONS: None ESTIMATED BLOOD LOSS: <5 mL SPECIMENS: None IMPLANT: Igsela SITE MARKING: As part of the preprocedure verification policy, a site marking procedure was initiated. Due to the nature the procedure, the insertion site could not be predetermined thus invoking the policy of exemption to site laterality and marking. Insertion site marking was performed in the procedure room in conjunction with imaging confirmation. PROCEDURE NOTE: Informed consent was obtained from the patient prior to the procedure. During this process, the procedure and potential alternatives were explained along with the intended outcome and benefits. The risks of the procedure, including the possibility of an unsuccessful procedure, as well as the risk of not doing the procedure, were discussed. The patient was given the opportunity to ask questions regarding the procedure and appeared competent to make decisions. A signed consent form documenting this discussion was placed in the medical record. A time-out procedure was performed. The patient was placed supine on the fluoroscopy table. The right neck was prepped and draped in the usual sterile fashion. All elements of maximal sterile barrier technique followed including use of cap, mask, sterile gown, sterile gloves, a sterile full body drape and hand hygiene. Also followed skin preparation with 2% chlorhexidine for cutaneous antisepsis, and sterile ultrasound preparation with sterile gel and probe cover when applicable. 10 mL of 1% lidocaine was used to obtain local anesthesia of the skin and deeper tissues. Under ultrasound and fluoroscopic guidance, the right internal jugular vein was accessed with a 5-Fr Micropuncture set. A 0.035 Bentson wire was advanced into the IVC. The sheath from a [place] filter set was advanced over the wire into the IVC, and the wire was removed. Gentle hand injection of contrast through the sheath confirmed positioning in the iliac vein. An inferior venacavogram was performed in this position. The sheath system was then placed in an infrarenal position, and the dilator was removed. The filter was then deployed in an infrarenal position. The sheath was removed and manual compression was applied until hemostasis was achieved. Dermabond was then applied over the neck incision. The patient tolerated the procedure well. FINDINGS: 1. Patient right internal jugular vein. Patent inferior vena cava. No venous anomalies. 2. Successful placement of a retrievable [place] filter in an infrarenal position. IMPRESSION: Successful placement of a retrievable IVC filter. PLAN: 1. The patient was stable after the procedure and was transferred to the interventional recovery area. The patient will be transferred to his medical room. 2. The IVC filter may be removed if the high risk period for pulmonary embolus ceases or if systemic anticoagulation can administered without risk of complication. 3. The patient will follow up at the interventional radiology clinic to assess timing of IVC filter removal if clinically appropriate.
--- NOTE | 2017-05-01 13:42 | ELECTROENCEPHALOGRAM REPORT ---
See Addendum Electroencephalogram Report Electroencephalogram Results Date of service: 05/01/17 Attending MD: Martinez Dee MD It Network Administrator: Starla EEG Number: [id number] Test Utilizes: 10-20 system, 21 lead 18 channel digital recording Pertinent Hx/Physical/Neuro Findings/Clin Diagnosis: syncope Inpatient Medications: Current Medications Sig/Tree Start time Last Medication Dose Route Stop Time Status Admin Acetaminophen 1,000 MG Q12 PRN 04/28 1815 AC 04/29 IV 0002 Albuterol Sulfate 2 PUF Q4 HRS NEEDED PRN 04/29 0315 AC INH Albuterol Sulfate 3 ML Q4 HRS NEEDED PRN 04/29 0200 DC INH Atorvastatin Calcium 40 MG 1700 04/28 1700 AC 04/30 PO 1733 Budesonide/ 2 PUF BID 04/28 2200 AC 05/01 Formoterol Fumarate INH 1337 Dextrose/Water 1,000 ML ONCE ONE 04/30 1630 AC 04/30 IV 05/02 0149 1636 Heparin Sodium 25,000 UNIT Q24H 04/29 1245 DC 04/30 (Porcine) IV 0932 Sodium Chloride 500 ML Ioversol 0 .STK-MED ONE 05/01 1138 DC IV Lidocaine 0 .STK-MED ONE 05/01 1138 DC .ROUTE Lidocaine 2 EDMAR .STK-MED ONE 05/01 1042 DC TOP 05/01 1043 Lidocaine 50 ML .STK-MED ONE 05/01 1042 DC TOP 05/01 1043 Metoclopramide HCl 10 MG Q6P PRN 04/30 1700 AC 04/30 IV 1733 Morphine Sulfate 2 MG Q6P PRN 04/29 0415 AC 04/29 IV 2020 Oseltamivir Phosphate 75 MG BID 04/28 2200 AC 05/01 PO 05/02 2159 1337 Oxycodone HCl 5 MG Q6P PRN 04/29 0415 AC 04/30 PO 2132 Pantoprazole Sodium 40 MG BID 04/30 1533 AC 05/01 IV 1336 Trimethobenzamide HCl 200 MG 4 TIMES/DAY 05/01 1000 AC 05/01 IM 1337 Interpretation: The recording demonstrates the normal frequency gradient during wakefulness with faster beta rhythms being seen up front and slower high amplitude alpha rhythms in the posterior portions. There are no paroxysmal sharps or spikes seen. No focal slowing. The posterior dominant rhythm is 8- hertz bilaterally. Impression: Normal recording in the awake and drowsy state.
[2017-05-01 14:51] VITALS: BP 142/76
--- NOTE | 2017-05-01 15:22 | PN- Cardiology ---
Subjective Subjective: * no complaints. * Following an episode of hematemesis the patient had an endoscopy showing a Kaylen-Mcgregor tear. He is now off anticoagulation and received an IVC filter. * Persistent anemia today. * sinus tachycardia Objective Vital Signs and I&Os Vital Signs Date Time Temp Pulse Resp B/P B/P Pulse O2 O2 Flow FiO2 Mean Ox Delivery Rate 05/01 1451 98.2 110 20 142/76 93 Room Air 05/01 0947 96 Room Air 05/01 0724 98.0 109 20 144/72 97 Room Air 04/30 2203 98.0 122 20 150/70 93 04/30 2138 94 Room Air 04/30 1630 113 130/80 Intake & Output 05/01 1600 05/01 0800 05/01 0000 04/30 1600 04/30 0800 04/30 0000 Intake Total 250 250 210 600 308 622 Output Total 350 275 200 200 100 160 Balance -100 -25 10 400 208 462 Intake, IV 250 250 210 208 52 Intake, Oral 0 600 100 570 Number 2 0 Bowel Movements Output, 200 Emesis Output, Other 10 Output, Urine 350 275 200 100 150 Patient 184 lb 188 lb Weight Weight Bed scale Measurement Method Physical Exam: General: WD/WN male in NAD; alert and oriented x 3 HEENT: NC/AT, PERRL, EOMI Neck: no JVD, no carotid bruit Heart: tachycardic with regular rhythm, no murmurs Lungs: clear bilaterally Abdomen: soft, NT, +ve bowel sounds Extremities: right thigh is minimally swollen and tender Assessment/Plan Assessment/Plan * Patient remains mildly tachycardic which may be due to persistent anemia and possibly to a PE, although a PE could not be unequivocally diagnosed by CT. He is now status post an IVC filter and anticoagulation is being held. * Monitor for hemodynamic stability and improvement in anemia. If now suspicion of bleeding then begin Metoprolol 12.5mg BID. Continue telemetry? Yes
[2017-05-01 16:13] LABS: PT 14.7 SEC (9.4-12.5)
[2017-05-01 17:49] LABS: ABSOLUTE BASOPHIL COUNT 0 /CUMM (0.0-0.2); ABSOLUTE EOSINOPHIL COUNT 0 /CUMM (0.0-0.7); ABSOLUTE GRANULOCYTE CT 10.2 /CUMM (1.4-6.5); ABSOLUTE LYMPH COUNT 1.1 /CUMM (1.2-3.4); ABSOLUTE MONOCYTE COUNT 1.5 /CUMM (0.10-0.60); BASOPHIL % 0.1 % (0.0-2.0); EOSINOPHIL % 0 % (0-5); GRANULOCYTE % 79.7 % (42.2-75.2); HEMATOCRIT 23.3 % (42-52); MEAN CORPUSCULAR HGB 29.3 PG (27.0-31.0); MEAN CORPUSCULAR HGB CONC 33.7 G/DL (33.0-37.0); MEAN CORPUSCULAR VOLUME 87.1 FL (80.0-94.0); MEAN PLATELET VOLUME 7.3 FL (7.4-10.4); PLATELET COUNT 300 /CUMM (130-400); RBC DISTRIBUTION WIDTH 13.7 % (11.5-14.5); RED BLOOD CELL CT 2.67 /CUMM (4.70-6.10); WHITE BLOOD CELL COUNT 12.9 /CUMM (4.8-10.8)
[2017-05-01 22:06] VITALS: BP 126/64
[2017-05-02 06:59] VITALS: BP 130/54
--- NOTE | 2017-05-02 07:20 | PN- Housestaff ---
Paulino CHAVEZ,[facility] 05/02/17 0719: Subjective Follow-up For: Fall Syncope RLE DVT Tele-Events Since Last Visit: ST 107-112 QRS .08 [place] .16 Subjective: No acute events overnight. States no issues overnight. No pain or SOB. No N/V, dizzyness, weakness or lightheadedness. Patient became SOB after I had him stand up. Of note, patient very hard of hearing. had to communicate via writing. Review of Systems Constitutional: Reports: see HPI. Cardiovascular: Reports: no symptoms. Respiratory: Reports: short of breath. Gastrointestinal: Reports: no symptoms. Genitourinary: Reports: no symptoms. Musculoskeletal: Reports: no symptoms. Objective Last 24 Hrs of Vital Signs/I&O Vital Signs Date Time Temp Pulse Resp B/P B/P Pulse O2 O2 Flow FiO2 Mean Ox Delivery Rate 05/02 1403 97.8 115 18 140/66 97 05/02 0659 98.4 106 18 130/54 94 Room Air 05/02 0019 121 124/64 05/01 2206 99.5 116 18 126/64 95 Room Air 05/01 1600 Room Air Intake & Output 05/02 1600 05/02 0800 05/02 0000 Intake Total 1150 110 300 Output Total 300 250 Balance 850 110 50 Intake, Blood 350 Product Intake, IV 10 Intake, Oral 800 100 300 Number 3 4 Bowel Movements Output, Urine 300 250 Patient 184 lb 184 lb Weight Weight Bed scale Measurement Method Physical Exam General Appearance: Alert, Oriented X3, Cooperative, Moderate Distress, tachypnea with loud breathing Cardiovascular: tachycardia Lungs: Clear to Auscultation, Normal Air Movement Abdomen: Normal Bowel Sounds, Soft, No Tenderness Extremities: No Edema Vascular: 2+ radial pulses Current Medications: Current Medications Sig/Tree Start time Last Medication Dose Route Stop Time Status Admin Acetaminophen 1,000 MG Q12 PRN 04/28 1815 AC 04/29 IV 0002 Albuterol Sulfate 3 ML Q6P PRN 05/02 1200 AC INH Albuterol Sulfate 2 PUF Q4 HRS NEEDED PRN 04/29 0315 AC INH Atorvastatin Calcium 40 MG 1700 04/28 1700 AC 05/01 PO 1830 Budesonide/ 2 PUF BID 04/28 2200 AC 05/02 Formoterol Fumarate INH 0801 Cyanocobalamin 1,000 MCG DAILY 05/02 1200 AC 05/02 PO 1326 Dextrose/Water 1,000 ML ONCE ONE 04/30 1630 DC 04/30 IV 05/02 0149 1636 Ipratropium Cummings 2.5 ML Q6P PRN 05/02 1200 AC INH Metoclopramide HCl 10 MG .STK-MED ONE 05/01 2258 DC IM 05/01 2259 Metoclopramide HCl 10 MG Q6P PRN 04/30 1700 AC 05/01 IV 2306 Metoprolol Tartrate 12.5 MG BID 05/01 2200 AC 05/02 PO 0019 Morphine Sulfate 2 MG Q6P PRN 04/29 0415 AC 04/29 IV 2020 Oseltamivir Phosphate 75 MG BID 04/28 220 AC 05/01 PO 05/03 1001 1337 Oxycodone HCl 5 MG Q6P PRN 04/29 0415 AC 04/30 PO 2132 Pantoprazole Sodium 40 MG BID 04/30 1533 AC 05/02 IV 0800 Trimethobenzamide HCl 200 MG ONCE ONE 05/02 0300 DC 05/02 IM 05/02 0301 0309 Trimethobenzamide HCl 200 MG 4 TIMES/DAY 05/01 1000 AC 05/02 IM 0800 Last 24 Hrs of Lab/Titus Results Last 24 Hrs of Labs/Mics: Laboratory Tests 05/02/17 1445: CBC w Diff Pending, WBC Pending, RBC Pending, Hgb Pending, Hct Pending, MCV Pending, MCH Pending, MCHC Pending, RDW Pending, Plt Count Pending, MPV Pending 05/02/17 0615: Anion Gap 13, Estimated GFR > 60, BUN/Creatinine Ratio 40.0 H, CBC w Diff NO MAN DIFF REQ, RBC 2.51 L, MCV 87.8, MCH 30.0, MCHC 34.1, RDW 13.9, MPV 7.6, Gran % 78.3 H, Lymphocytes % 10.3 L, Monocytes % 11.4 H, Eosinophils % 0, Basophils % 0, Absolute Granulocytes 10.2 H, Absolute Lymphocytes 1.3, Absolute Monocytes 1.5 H, Absolute Eosinophils 0, Absolute Basophils 0 05/01/17 1715: CBC w Diff NO MAN DIFF REQ, RBC 2.67 L, MCV 87.1, MCH 29.3, MCHC 33.7, RDW 13.7 , MPV 7.3 L, Gran % 79.7 H, Lymphocytes % 8.6 L, Monocytes % 11.6 H, Eosinophils % 0, Basophils % 0.1, Absolute Granulocytes 10.2 H, Absolute Lymphocytes 1.1 L, Absolute Monocytes 1.5 H, Absolute Eosinophils 0, Absolute Basophils 0 Assessment/Plan Assessment: Mr. 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 Anemia * H/H dropped to 7.5/22 today. Transfusing 1 unit. Follow post transfusion cbc @ 4pm. * consider stopped tamiflu if patient having N/V * cont monitoring renal function * EGD revaeled vinod verma tear * iron studies, folate b12 WNL but b12 borderline low. will start b12. * monitor H&H * hgb goal >8 * cont IV PPI BID * tigan scheduled as qtc >450 * follow GI recommendations regarding anticoagulation restart and IVC filter retrieval #sinus tachy * patient in sinus tachy 100+. most likely 2/2 to anemia but possibly due to PE as patient has DVT. * consider PE if sinus tachy not resolved after adequate transfusion Fall with Syncope * Serial TROP/ECG to r/o ACS negative * ECHO demonstrated diastolic filling pattern is consistent with impaired LV relaxation. EF at 70%. * Orthostatics negative * Neuro checks q 4 * Cardio recommendations appreciated * Neuro recommendations appreciated * Continue home meds except Tizanidine * EEG normal RLE DVT * Doppler US demonstrated a deep venous thrombosis in the right lower extremity involving the femoral vein and popliteal vein. * HOLDING IV Heparin * Guaiac positive * f/u cardiology recs (05/01/17) Hyponatremia * remains stable * cont to monitor Influenza * Continue Oseltamivir 75 mg BID day 2 * consider stopping per GI DVT prophylaxis: ALPS Code: FULL Problem List: 1. GI bleed 2. DVT (deep venous thrombosis) 3. Syncope and collapse Pain Ratin Pain Location: none Pain Goal: Pain 4 or less Pain Plan: pain pathway Tomorrow's Labs & Rationales: cbc bep Kevan Deekarie 05/02/17 1356: Attending MD Review Statement Attending Statement Attending MD Statement: examined this patient, discuss w/resident/PA/COMMERCIAL OCEAN CLAMMER, agreed w/resident/PA/COMMERCIAL OCEAN CLAMMER, reviewed EMR data (avail), discussed with nursing, discussed with case mgmt Attending Assessment/Plan: Anemia- getting 1 U PRBC today for acute anemia secondary to blood loss. Started on metoprolol to 12.5mg po bid for tachycardia. DVT s/p ivc filter . plan would be to start him on anticoagulation once ok with GI and then remove the IVC filter at a later date .
[2017-05-02 08:11] LABS: ABSOLUTE BASOPHIL COUNT 0 /CUMM (0.0-0.2); ABSOLUTE EOSINOPHIL COUNT 0 /CUMM (0.0-0.7); ABSOLUTE GRANULOCYTE CT 10.2 /CUMM (1.4-6.5); ABSOLUTE LYMPH COUNT 1.3 /CUMM (1.2-3.4); ABSOLUTE MONOCYTE COUNT 1.5 /CUMM (0.10-0.60); BASOPHIL % 0 % (0.0-2.0); EOSINOPHIL % 0 % (0-5); GRANULOCYTE % 78.3 % (42.2-75.2); MEAN CORPUSCULAR HGB CONC 34.1 G/DL (33.0-37.0); MEAN CORPUSCULAR VOLUME 87.8 FL (80.0-94.0); MEAN PLATELET VOLUME 7.6 FL (7.4-10.4); PLATELET COUNT 313 /CUMM (130-400); RBC DISTRIBUTION WIDTH 13.9 % (11.5-14.5); RED BLOOD CELL CT 2.51 /CUMM (4.70-6.10)
[2017-05-02 14:03] VITALS: BP 140/66
[2017-05-02 17:13] LABS: ABSOLUTE BASOPHIL COUNT 0 /CUMM (0.0-0.2); ABSOLUTE EOSINOPHIL COUNT 0 /CUMM (0.0-0.7); ABSOLUTE GRANULOCYTE CT 10.4 /CUMM (1.4-6.5); ABSOLUTE LYMPH COUNT 1.1 /CUMM (1.2-3.4); ABSOLUTE MONOCYTE COUNT 1.2 /CUMM (0.10-0.60); BASOPHIL % 0.1 % (0.0-2.0); EOSINOPHIL % 0 % (0-5); GRANULOCYTE % 81.4 % (42.2-75.2); HEMATOCRIT 23.8 % (42-52); MEAN CORPUSCULAR HGB 29.8 PG (27.0-31.0); MEAN CORPUSCULAR HGB CONC 34.1 G/DL (33.0-37.0); MEAN CORPUSCULAR VOLUME 87.5 FL (80.0-94.0); MEAN PLATELET VOLUME 7.6 FL (7.4-10.4); PLATELET COUNT 306 /CUMM (130-400); RBC DISTRIBUTION WIDTH 14.1 % (11.5-14.5); RED BLOOD CELL CT 2.72 /CUMM (4.70-6.10); WHITE BLOOD CELL COUNT 12.7 /CUMM (4.8-10.8)
--- NOTE | 2017-05-02 17:36 | PN- Gastroenterology ---
Assessment/Plan GI Assessment/Recommendations: Hematemesis secondary to Kaylen-Mcgregor tear. Anemia, with necessary transfusion of 1 unit packed red blood cells today. The patient had a Hemoccult negative stool yesterday. Recommendations: * Continue scheduled antiemetic therapy * Advance to full liquid diet * Follow-up CBC in the morning * Would not begin anticoagulation at this time. Subjective Subjective: Tolerated clear liquids. Some nausea, improved. No abdominal pain. Objective Vital Signs and I&Os Vital Signs Date Time Temp Pulse Resp B/P B/P Pulse O2 O2 Flow FiO2 Mean Ox Delivery Rate 05/02 1403 97.8 115 18 140/66 97 05/02 0659 98.4 106 18 130/54 94 Room Air 05/02 0019 121 124/64 05/01 2206 99.5 116 18 126/64 95 Room Air Intake & Output 05/02 1600 05/02 0400 05/01 1600 05/01 0400 04/30 1600 04/30 0400 Intake Total 1260 300 500 210 908 622 Output Total 300 250 625 200 300 160 Balance 960 50 -125 10 608 462 Intake, Blood 350 Product Intake, IV 10 500 210 208 52 Intake, Oral 900 300 0 700 570 Number 3 4 2 0 Bowel Movements Output, 200 Emesis Output, Other 10 Output, Urine 300 250 625 200 100 150 Patient 184 lb 184 lb 184 lb 188 lb Weight Weight Bed scale Bed scale Measurement Method Physical Exam: Abdomen soft, nontender. Current Medications: Current Medications Sig/Tree Start time Last Medication Dose Route Stop Time Status Admin Acetaminophen 1,000 MG Q12 PRN 04/28 1815 AC 04/29 IV 0002 Albuterol Sulfate 3 ML Q6P PRN 05/02 1200 AC INH Albuterol Sulfate 2 PUF Q4 HRS NEEDED PRN 04/29 0315 AC INH Atorvastatin Calcium 40 MG 1700 04/28 1700 AC 05/02 PO 1617 Budesonide/ 2 PUF BID 04/28 2200 AC 05/02 Formoterol Fumarate INH 0801 Cyanocobalamin 1,000 MCG DAILY 05/02 1200 AC 05/02 PO 1326 Dextrose/Water 1,000 ML ONCE ONE 04/30 1630 DC 04/30 IV 05/02 0149 1636 Ipratropium [place] 2.5 ML Q6P PRN 05/02 1200 AC INH Metoclopramide HCl 10 MG .STK-MED ONE 05/01 2257 DC IM 05/01 225 Metoclopramide HCl 10 MG Q6P PRN 04/30 1700 AC 05/01 IV 2306 Metoprolol Tartrate 12.5 MG BID 05/01 2199 AC 05/02 PO 0019 Morphine Sulfate 2 MG Q6P PRN 04/29 0415 AC 04/29 IV 2020 Oseltamivir Phosphate 75 MG BID 04/28 2199 AC 05/01 PO 05/03 1001 1337 Oxycodone HCl 5 MG Q6P PRN 04/29 0415 AC 04/30 PO 2132 Pantoprazole Sodium 40 MG BID 04/30 1533 AC 05/02 IV 0800 Trimethobenzamide HCl 200 MG ONCE ONE 05/02 0300 DC 05/02 IM 05/02 0301 0309 Trimethobenzamide HCl 200 MG 4 TIMES/DAY 05/01 1000 AC 05/02 IM 0800 Results Pertinent Lab Results: Laboratory Tests 05/02 05/02 1625 0615 Chemistry Sodium (137 - 145 mmol/L) 133 L Potassium (3.5 - 5.1 mmol/L) 3.9 Chloride (98 - 107 mmol/L) 97 L Carbon Dioxide (22 - 30 mmol/L) 23 Anion Gap (5 - 16) 13 BUN (9 - 20 mg/dL) 40 H Creatinine (0.7 - 1.2 mg/dL) 1.0 Estimated GFR (>60 ml/min) > 60 BUN/Creatinine Ratio (7 - 25 %) 40.0 H Hematology CBC w Diff NO MAN DIFF REQ WBC (4.8 - 10.8 /CUMM) 12.7 H 13.0 H RBC (4.70 - 6.10 /CUMM) 2.72 L 2.51 L Hgb (14.0 - 18.0 G/DL) 8.1 L 7.5 L Hct (42 - 52 %) 23.8 L 22.0 L MCV (80.0 - 94.0 FL) 87.5 87.8 MCH (27.0 - 31.0 PG) 29.8 30.0 MCHC (33.0 - 37.0 G/DL) 34.1 34.1 RDW (11.5 - 14.5 %) 14.1 13.9 Plt Count (130 - 400 /CUMM) 306 313 MPV (7.4 - 10.4 FL) 7.6 7.6 Gran % (42.2 - 75.2 %) 81.4 H 78.3 H Lymphocytes % (20.5 - 51.1 %) 8.7 L 10.3 L Monocytes % (1.7 - 9.3 %) 9.8 H 11.4 H Eosinophils % (0 - 5 %) 0 0 Basophils % (0.0 - 2.0 %) 0.1 0 Absolute Granulocytes (1.4 - 6.5 /CUMM) 10.4 H 10.2 H Absolute Lymphocytes (1.2 - 3.4 /CUMM) 1.1 L 1.3 Absolute Monocytes (0.10 - 0.60 /CUMM) 1.2 H 1.5 H Absolute Eosinophils (0.0 - 0.7 /CUMM) 0 0 Absolute Basophils (0.0 - 0.2 /CUMM) 0 0 /05/01 1715 1430 Coagulation PT (9.4 - 12.5 SEC) 14.7 H INR (0.90 - 1.17) 1.34 H Hematology CBC w Diff NO MAN DIFF REQ WBC (4.8 - 10.8 /CUMM) 12.9 H RBC (4.70 - 6.10 /CUMM) 2.67 L Hgb (14.0 - 18.0 G/DL) 7.8 L Hct (42 - 52 %) 23.3 L MCV (80.0 - 94.0 FL) 87.1 MCH (27.0 - 31.0 PG) 29.3 MCHC (33.0 - 37.0 G/DL) 33.7 RDW (11.5 - 14.5 %) 13.7 Plt Count (130 - 400 /CUMM) 300 MPV (7.4 - 10.4 FL) 7.3 L Gran % (42.2 - 75.2 %) 79.7 H Lymphocytes % (20.5 - 51.1 %) 8.6 L Monocytes % (1.7 - 9.3 %) 11.6 H Eosinophils % (0 - 5 %) 0 Basophils % (0.0 - 2.0 %) 0.1 Absolute Granulocytes (1.4 - 6.5 /CUMM) 10.2 H Absolute Lymphocytes (1.2 - 3.4 /CUMM) 1.1 L Absolute Monocytes (0.10 - 0.60 /CUMM) 1.5 H Absolute Eosinophils (0.0 - 0.7 /CUMM) 0 Absolute Basophils (0.0 - 0.2 /CUMM) 0 05/01 03 0700 0000 Chemistry Sodium (137 - 145 mmol/L) 131 L Potassium (3.5 - 5.1 mmol/L) 4.2 Chloride (98 - 107 mmol/L) 95 L Carbon Dioxide (22 - 30 mmol/L) 22 Anion Gap (5 - 16) 14 BUN (9 - 20 mg/dL) 44 H Creatinine (0.7 - 1.2 mg/dL) 1.1 Estimated GFR (>60 ml/min) > 60 BUN/Creatinine Ratio (7 - 25 %) 40.0 H Iron (49 - 181 ug/dL) 58 TIBC (261 - 462 ug/dL) 290 Ferritin (17.9 - 464 ng/mL) 354.0 Vitamin B12 (239 - 931 pg/mL) 310 Folate (2.76 - 20.0 ng/mL) 7.4 Hematology CBC w Diff NO MAN DIFF REQ Cancelled WBC (4.8 - 10.8 /CUMM) 12.4 H Cancelled RBC (4.70 - 6.10 /CUMM) 2.70 L Cancelled Hgb (14.0 - 18.0 G/DL) 8.1 L Cancelled Hct (42 - 52 %) 23.4 L Cancelled MCV (80.0 - 94.0 FL) 86.6 Cancelled MCH (27.0 - 31.0 PG) 29.8 Cancelled MCHC (33.0 - 37.0 G/DL) 34.5 Cancelled RDW (11.5 - 14.5 %) 13.7 Cancelled Plt Count (130 - 400 /CUMM) 262 Cancelled MPV (7.4 - 10.4 FL) 8.0 Cancelled Gran % (42.2 - 75.2 %) 78.2 H Lymphocytes % (20.5 - 51.1 %) 9.2 L Monocytes % (1.7 - 9.3 %) 12.6 H Eosinophils % (0 - 5 %) 0 Basophils % (0.0 - 2.0 %) 0 Absolute Granulocytes (1.4 - 6.5 /CUMM) 9.7 H Absolute Lymphocytes (1.2 - 3.4 /CUMM) 1.1 L Absolute Monocytes (0.10 - 0.60 /CUMM) 1.6 H Absolute Eosinophils (0.0 - 0.7 /CUMM) 0 Absolute Basophils (0.0 - 0.2 /CUMM) 0 04/30 04/30 2345 1600 Coagulation APTT Cancelled Hematology CBC w Diff NO MAN DIFF REQ WBC (4.8 - 10.8 /CUMM) 12.4 H RBC (4.70 - 6.10 /CUMM) 2.87 L Hgb (14.0 - 18.0 G/DL) 8.5 L Hct (42 - 52 %) 24.5 L MCV (80.0 - 94.0 FL) 85.5 MCH (27.0 - 31.0 PG) 29.6 MCHC (33.0 - 37.0 G/DL) 34.7 RDW (11.5 - 14.5 %) 13.6 Plt Count (130 - 400 /CUMM) 296 MPV (7.4 - 10.4 FL) 8.0 Gran % (42.2 - 75.2 %) 82.3 H Lymphocytes % (20.5 - 51.1 %) 8.6 L Monocytes % (1.7 - 9.3 %) 9.0 Eosinophils % (0 - 5 %) 0 Basophils % (0.0 - 2.0 %) 0.1 Absolute Granulocytes (1.4 - 6.5 /CUMM) 10.2 H Absolute Lymphocytes (1.2 - 3.4 /CUMM) 1.1 L Absolute Monocytes (0.10 - 0.60 /CUMM) 1.1 H Absolute Eosinophils (0.0 - 0.7 /CUMM) 0 Absolute Basophils (0.0 - 0.2 /CUMM) 0 04/30 04/30 1255 0850 Coagulation APTT (25 - 37 SEC) 45 H Hematology CBC w Diff NO MAN DIFF REQ WBC (4.8 - 10.8 /CUMM) 11.5 H RBC (4.70 - 6.10 /CUMM) 3.01 L Hgb (14.0 - 18.0 G/DL) 8.9 L Hct (42 - 52 %) 26.3 L MCV (80.0 - 94.0 FL) 87.1 MCH (27.0 - 31.0 PG) 29.6 MCHC (33.0 - 37.0 G/DL) 34.0 RDW (11.5 - 14.5 %) 13.8 Plt Count (130 - 400 /CUMM) 293 MPV (7.4 - 10.4 FL) 8.2 Gran % (42.2 - 75.2 %) 81.5 H Lymphocytes % (20.5 - 51.1 %) 8.8 L Monocytes % (1.7 - 9.3 %) 9.6 H Eosinophils % (0 - 5 %) 0 Basophils % (0.0 - 2.0 %) 0.1 Absolute Granulocytes (1.4 - 6.5 /CUMM) 9.4 H Absolute Lymphocytes (1.2 - 3.4 /CUMM) 1.0 L Absolute Monocytes (0.10 - 0.60 /CUMM) 1.1 H Absolute Eosinophils (0.0 - 0.7 /CUMM) 0 Absolute Basophils (0.0 - 0.2 /CUMM) 0 04/30 04/29 0645 2030 Chemistry Sodium (137 - 145 mmol/L) 129 L Potassium (3.5 - 5.1 mmol/L) 4.1 Chloride (98 - 107 mmol/L) 97 L Carbon Dioxide (22 - 30 mmol/L) 21 L Anion Gap (5 - 16) 11 BUN (9 - 20 mg/dL) 29 H Creatinine (0.7 - 1.2 mg/dL) 0.9 Estimated GFR (>60 ml/min) > 60 BUN/Creatinine Ratio (7 - 25 %) 32.2 H Coagulation APTT (25 - 37 SEC) 62 H Hematology CBC w Diff NO MAN DIFF REQ WBC (4.8 - 10.8 /CUMM) 9.8 RBC (4.70 - 6.10 /CUMM) 3.10 L Hgb (14.0 - 18.0 G/DL) 9.3 L Hct (42 - 52 %) 27.4 L MCV (80.0 - 94.0 FL) 88.4 MCH (27.0 - 31.0 PG) 29.9 MCHC (33.0 - 37.0 G/DL) 33.8 RDW (11.5 - 14.5 %) 13.7 Plt Count (130 - 400 /CUMM) 264 MPV (7.4 - 10.4 FL) 7.9 Gran % (42.2 - 75.2 %) 74.9 Lymphocytes % (20.5 - 51.1 %) 13.1 L Monocytes % (1.7 - 9.3 %) 11.6 H Eosinophils % (0 - 5 %) 0 Basophils % (0.0 - 2.0 %) 0.4 Absolute Granulocytes (1.4 - 6.5 /CUMM) 7.3 H Absolute Lymphocytes (1.2 - 3.4 /CUMM) 1.3 Absolute Monocytes (0.10 - 0.60 /CUMM) 1.1 H Absolute Eosinophils (0.0 - 0.7 /CUMM) 0 Absolute Basophils (0.0 - 0.2 /CUMM) 0
--- NOTE | 2017-05-02 21:46 | PN- Cardiology ---
Subjective Subjective: * No complaints. Leg discomfort has imroved and no shortness of breath. * status post transfusion with little improvement in H/H * Patient remains mildly tachycardic * Following an episode of hematemesis the patient had an endoscopy showing a Kyalen-Mcgregor tear. He is now off anticoagulation and received an IVC filter. Objective Vital Signs and I&Os Vital Signs Date Time Temp Pulse Resp B/P B/P Pulse O2 O2 Flow FiO2 Mean Ox Delivery Rate 05/02 1403 97.8 115 18 140/66 97 05/02 0659 98.4 106 18 130/54 94 Room Air 05/02 0019 121 124/64 05/01 2206 99.5 116 18 126/64 95 Room Air Intake & Output 05/02 1600 05/02 0800 05/02 0000 05/01 1600 05/01 0800 05/01 0000 Intake Total 1150 110 300 250 250 210 Output Total 300 250 350 275 200 Balance 850 110 50 -100 -25 10 Intake, Blood 350 Product Intake, IV 10 250 250 210 Intake, Oral 800 100 300 0 Number 3 4 2 Bowel Movements Output, Urine 300 250 350 275 200 Patient 184 lb 184 lb 184 lb Weight Weight Bed scale Measurement Method Physical Exam: General: WD/WN male in NAD; alert and oriented x 3 HEENT: NC/AT, PERRL, EOMI Neck: no JVD, no carotid bruit Heart: tachycardic with regular rhythm, no murmurs Lungs: clear bilaterally Abdomen: soft, NT, +ve bowel sounds Extremities: right thigh is minimally swollen and tender Assessment/Plan Assessment/Plan * Patient remains mildly tachycardic which may be due to persistent anemia and possibly to a PE, although a PE could not be unequivocally diagnosed by CT. He is now status post an IVC filter and anticoagulation is being held. * Monitor for hemodynamic stability and improvement in anemia. Increased Metoprolol to 25mg BID. Continue telemetry? Yes
[2017-05-02 22:38] VITALS: BP 144/70
[2017-05-03 06:36] VITALS: BP 148/68
--- NOTE | 2017-05-03 07:20 | PN- Housestaff ---
Paulino CHAVEZ,[facility] 05/03/17 0720: Subjective Follow-up For: Fall Syncope RLE DVT Tele-Events Since Last Visit: ST 93-106 QRS .08 HI .20 Subjective: No acute events overnight. States he feels better this AM after the tranfusion. No N/V. No weakeness, dizzyness or light headedness. Discuss with patient regarding STR this afternoon which he did not want. Review of Systems Constitutional: Reports: no symptoms. Objective Last 24 Hrs of Vital Signs/I&O Vital Signs Date Time Temp Pulse Resp B/P B/P Pulse O2 O2 Flow FiO2 Mean Ox Delivery Rate 05/03 1355 98.0 106 18 140/70 96 05/03 0755 105 148/68 05/03 0636 98.9 105 18 148/68 97 Room Air 05/03 0000 Room Air 05/02 2238 99.2 111 18 144/70 95 05/02 2116 121 Intake & Output 05/03 1600 05/03 0800 05/03 0000 Intake Total 650 100 20 Output Total 675 200 Balance 650 -575 -180 Intake, IV 20 Intake, Oral 650 100 Number 1 2 Bowel Movements Output, 150 Emesis Output, Stool 100 Output, Urine 575 50 Patient 184 lb Weight Weight Bed scale Measurement Method Physical Exam General Appearance: Alert, Oriented X3, Cooperative, No Acute Distress, Patient is deaf and communicates via reading/writing and then speaking HEENT: PERRLA Cardiovascular: Regular Rate, Normal S1, Normal S2 Lungs: Clear to Auscultation, Normal Air Movement Abdomen: Normal Bowel Sounds, Soft, No Tenderness Extremities: 2+ radial pulses Vascular: No edema Current Medications: Current Medications Sig/Tree Start time Last Medication Dose Route Stop Time Status Admin Acetaminophen 1,000 MG Q12 PRN 04/28 1815 AC 04/29 IV 0002 Albuterol Sulfate 3 ML Q6P PRN 05/02 1200 AC INH Albuterol Sulfate 2 PUF Q4 HRS NEEDED PRN 04/29 0315 AC INH Atorvastatin Calcium 40 MG 1700 04/28 1700 AC 05/03 PO 1743 Budesonide/ 2 PUF BID 04/28 2200 AC 05/03 Formoterol Fumarate INH 0755 Cyanocobalamin 1,000 MCG DAILY 05/02 1200 AC 05/03 PO 0755 Ipratropium [place] 2.5 ML Q6P PRN 05/02 1200 AC INH Melatonin 5 MG ONCE ONE 05/02 2100 DC PO 05/02 2101 Metoclopramide HCl 10 MG Q6P PRN 04/30 1700 AC 05/01 IV 2306 Metoprolol Tartrate 25 MG BID 05/03 1000 AC 05/03 PO 0755 Metoprolol Tartrate 12.5 MG BID 05/01 2200 DC 05/02 PO 0019 Morphine Sulfate 2 MG Q6P PRN 04/29 0415 AC 04/29 IV 2020 Oseltamivir Phosphate 75 MG BID 04/28 2200 DC 05/01 PO 05/03 1001 1337 Oxycodone HCl 5 MG Q6P PRN 04/29 0415 AC 04/30 PO 2132 Pantoprazole Sodium 40 MG BID 04/30 1533 AC 05/03 IV 0755 Trimethobenzamide HCl 200 MG 4 TIMES/DAY 05/01 1000 AC 05/03 IM 1744 Last 24 Hrs of Lab/Titus Results Last 24 Hrs of Labs/Mics: Laboratory Tests 05/03/17 0630: Anion Gap 14, Estimated GFR > 60, BUN/Creatinine Ratio 40.0 H, CBC w Diff NO MAN DIFF REQ, RBC 2.71 L, MCV 87.7, MCH 29.9, MCHC 34.0, RDW 13.8, MPV 7.4, Gran % 74.7, Lymphocytes % 9.8 L, Monocytes % 15.5 H, Eosinophils % 0, Basophils % 0, Absolute Granulocytes 8.5 H, Absolute Lymphocytes 1.1 L, Absolute Monocytes 1.8 H, Absolute Eosinophils 0, Absolute Basophils 0 Assessment/Plan Assessment: A: Mr. 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 P: #Anemia Anemia most likely 2/2 to GI bleed s/p EGD * tolerated full liquid diet, will try regular diet tonight * H/H 7.5/22 -> 8.1/23.8x2 s/p 1 prbc transfusion. * stopped tamiflu for N/V * cont monitoring renal function * EGD revaeled vinod verma tear * iron studies, folate b12 WNL but b12 borderline low. cont b12. * monitor H&H * hgb goal >8 * cont IV PPI BID * tigan scheduled as qtc >450 * follow GI recommendations regarding anticoagulation restart (currently holding per GI) and IVC filter retrieval #sinus tachy * patient in sinus tachy 100+. most likely 2/2 to anemia but possibly due to PE as patient has DVT. * consider PE if sinus tachy not resolved after adequate transfusion * increased metoprolol to 25 BID Fall with Syncope * Serial TROP/ECG to r/o ACS negative * ECHO demonstrated diastolic filling pattern is consistent with impaired LV relaxation. EF at 70%. * Orthostatics negative * Neuro checks q 4 * Cardio recommendations appreciated * Neuro recommendations appreciated * Continue home meds except Tizanidine * EEG normal RLE DVT * Doppler US demonstrated a deep venous thrombosis in the right lower extremity involving the femoral vein and popliteal vein. * HOLDING IV Heparin * Guaiac positive * f/u cardiology recs Hyponatremia * remains stable * cont to monitor Influenza * Continue Oseltamivir 75 mg BID day 03/26 * consider stopping per GI DVT prophylaxis: ALPS Problem List: 1. GI bleed 2. DVT (deep venous thrombosis) 3. Syncope and collapse Pain Ratin Pain Location: none Pain Goal: Pain 4 or less Pain Plan: pain pathway Tomorrow's Labs & Rationales: cbc bep Alejandra Deezena 05/03/17 1450: Attending MD Review Statement Attending Statement Attending MD Statement: examined this patient, discuss w/resident/PA/BEVERAGE INSPECTION MACHINE TENDER, agreed w/resident/PA/BEVERAGE INSPECTION MACHINE TENDER, reviewed EMR data (avail), discussed with nursing, discussed with case mgmt Attending Assessment/Plan: Pt hb stable , diet advanced to full liquid. If hb stable in am , will advance to regular diet and dc him tomorrow. d/w pt the care plan.
[2017-05-03 08:17] LABS: ABSOLUTE BASOPHIL COUNT 0 /CUMM (0.0-0.2); ABSOLUTE EOSINOPHIL COUNT 0 /CUMM (0.0-0.7); ABSOLUTE GRANULOCYTE CT 8.5 /CUMM (1.4-6.5); ABSOLUTE LYMPH COUNT 1.1 /CUMM (1.2-3.4); ABSOLUTE MONOCYTE COUNT 1.8 /CUMM (0.10-0.60); BASOPHIL % 0 % (0.0-2.0); EOSINOPHIL % 0 % (0-5); GRANULOCYTE % 74.7 % (42.2-75.2); HEMATOCRIT 23.7 % (42-52); MEAN CORPUSCULAR HGB 29.9 PG (27.0-31.0); MEAN CORPUSCULAR VOLUME 87.7 FL (80.0-94.0); MEAN PLATELET VOLUME 7.4 FL (7.4-10.4); PLATELET COUNT 320 /CUMM (130-400); RBC DISTRIBUTION WIDTH 13.8 % (11.5-14.5); RED BLOOD CELL CT 2.71 /CUMM (4.70-6.10); WHITE BLOOD CELL COUNT 11.4 /CUMM (4.8-10.8)
[2017-05-03 13:55] VITALS: BP 140/70
--- NOTE | 2017-05-03 19:03 | PN- Gastroenterology ---
Assessment/Plan GI Assessment/Recommendations: Hematemesis secondary to Kaylen-Mcgregor tear. Anemia, with necessary transfusion of 1 unit packed red blood cells 2 days ago, hematocrit stable since. Once again, the patient had a Hemoccult negative stool today. Recommendations: * May change antiemetic therapy to prn after the discontinuation of Tamiflu. * Advance to regular diet * Follow-up CBC in the morning * If CBC stable tomorrow, consider institution of anticoagulation, if necessary Thank you very much for allowing gastroenterology participation in this patient' s care. We will no longer follow the patient in hospital. Please call or reconsult as needed. The patient has an outside route process administrator; after discharge, he can be given a choice to follow-up with them or me. Subjective Subjective: No nausea or vomiting. Sometimes "spitting up." Hiccuping. No abdominal pain. Objective Vital Signs and I&Os Vital Signs Date Time Temp Pulse Resp B/P B/P Pulse O2 O2 Flow FiO2 Mean Ox Delivery Rate 05/03 1355 98.0 106 18 140/70 96 05/03 0755 105 148/68 05/03 0636 98.9 105 18 148/68 97 Room Air 05/03 0000 Room Air 05/02 2238 99.2 111 18 144/70 95 05/02 2116 121 Intake & Output 05/03 1600 05/03 0400 05/02 1600 05/02 0400 05/01 1600 05/01 0400 Intake Total 287 96 5364 300 500 210 Output Total 675 200 300 250 625 200 Balance 75 -180 960 50 -125 10 Intake, Blood 350 Product Intake, IV 20 10 500 210 Intake, Oral 750 900 300 0 Number 1 2 3 4 2 Bowel Movements Output, 150 Emesis Output, Stool 100 Output, Urine 575 50 300 250 625 200 Patient 184 lb 184 lb 184 lb 184 lb Weight Weight Bed scale Bed scale Measurement Method Physical Exam: Abdomen soft, nondistended, nontender. Current Medications: Current Medications Sig/Tree Start time Last Medication Dose Route Stop Time Status Admin Acetaminophen 1,000 MG Q12 PRN 04/28 1815 AC 04/29 IV 0002 Albuterol Sulfate 3 ML Q6P PRN 05/02 1200 AC INH Albuterol Sulfate 2 PUF Q4 HRS NEEDED PRN 04/29 0315 AC INH Atorvastatin Calcium 40 MG 1700 04/28 1700 AC 05/03 PO 1743 Budesonide/ 2 PUF BID 04/28 2200 AC 05/03 Formoterol Fumarate INH 0755 Cyanocobalamin 1,000 MCG DAILY 05/02 1200 AC 05/03 PO 0755 Ipratropium [place] 2.5 ML Q6P PRN 05/02 1200 AC INH Melatonin 5 MG ONCE ONE 05/02 2100 DC PO 05/02 2101 Metoclopramide HCl 10 MG Q6P PRN 04/30 1700 AC 05/01 IV 2306 Metoprolol Tartrate 25 MG BID 05/03 1000 AC 05/03 PO 0755 Metoprolol Tartrate 12.5 MG BID 05/01 2200 DC 05/02 PO 0019 Morphine Sulfate 2 MG Q6P PRN 04/29 0415 AC 04/29 IV 2020 Oseltamivir Phosphate 75 MG BID 04/28 2200 DC 05/01 PO 05/03 1001 1337 Oxycodone HCl 5 MG Q6P PRN 04/29 0415 AC 04/30 PO 2132 Pantoprazole Sodium 40 MG BID 04/30 1533 AC 05/03 IV 0755 Trimethobenzamide HCl 200 MG 4 TIMES/DAY 05/01 1000 AC 05/03 IM 1744 Results Pertinent Lab Results: Laboratory Tests 05/03 05/02 0630 1625 Chemistry Sodium (137 - 145 mmol/L) 135 L Potassium (3.5 - 5.1 mmol/L) 3.6 Chloride (98 - 107 mmol/L) 98 Carbon Dioxide (22 - 30 mmol/L) 22 Anion Gap (5 - 16) 14 BUN (9 - 20 mg/dL) 36 H Creatinine (0.7 - 1.2 mg/dL) 0.9 Estimated GFR (>60 ml/min) > 60 BUN/Creatinine Ratio (7 - 25 %) 40.0 H Hematology CBC w Diff NO MAN DIFF REQ WBC (4.8 - 10.8 /CUMM) 11.4 H 12.7 H RBC (4.70 - 6.10 /CUMM) 2.71 L 2.72 L Hgb (14.0 - 18.0 G/DL) 8.1 L 8.1 L Hct (42 - 52 %) 23.7 L 23.8 L MCV (80.0 - 94.0 FL) 87.7 87.5 MCH (27.0 - 31.0 PG) 29.9 29.8 MCHC (33.0 - 37.0 G/DL) 34.0 34.1 RDW (11.5 - 14.5 %) 13.8 14.1 Plt Count (130 - 400 /CUMM) 320 306 MPV (7.4 - 10.4 FL) 7.4 7.6 Gran % (42.2 - 75.2 %) 74.7 81.4 H Lymphocytes % (20.5 - 51.1 %) 9.8 L 8.7 L Monocytes % (1.7 - 9.3 %) 15.5 H 9.8 H Eosinophils % (0 - 5 %) 0 0 Basophils % (0.0 - 2.0 %) 0 0.1 Absolute Granulocytes (1.4 - 6.5 /CUMM) 8.5 H 10.4 H Absolute Lymphocytes (1.2 - 3.4 /CUMM) 1.1 L 1.1 L Absolute Monocytes (0.10 - 0.60 /CUMM) 1.8 H 1.2 H Absolute Eosinophils (0.0 - 0.7 /CUMM) 0 0 Absolute Basophils (0.0 - 0.2 /CUMM) 0 0 /14 / 0615 1715 Chemistry Sodium (137 - 145 mmol/L) 133 L Potassium (3.5 - 5.1 mmol/L) 3.9 Chloride (98 - 107 mmol/L) 97 L Carbon Dioxide (22 - 30 mmol/L) 23 Anion Gap (5 - 16) 13 BUN (9 - 20 mg/dL) 40 H Creatinine (0.7 - 1.2 mg/dL) 1.0 Estimated GFR (>60 ml/min) > 60 BUN/Creatinine Ratio (7 - 25 %) 40.0 H Hematology CBC w Diff NO MAN DIFF REQ NO MAN DIFF REQ WBC (4.8 - 10.8 /CUMM) 13.0 H 12.9 H RBC (4.70 - 6.10 /CUMM) 2.51 L 2.67 L Hgb (14.0 - 18.0 G/DL) 7.5 L 7.8 L Hct (42 - 52 %) 22.0 L 23.3 L MCV (80.0 - 94.0 FL) 87.8 87.1 MCH (27.0 - 31.0 PG) 30.0 29.3 MCHC (33.0 - 37.0 G/DL) 34.1 33.7 RDW (11.5 - 14.5 %) 13.9 13.7 Plt Count (130 - 400 /CUMM) 313 300 MPV (7.4 - 10.4 FL) 7.6 7.3 L Gran % (42.2 - 75.2 %) 78.3 H 79.7 H Lymphocytes % (20.5 - 51.1 %) 10.3 L 8.6 L Monocytes % (1.7 - 9.3 %) 11.4 H 11.6 H Eosinophils % (0 - 5 %) 0 0 Basophils % (0.0 - 2.0 %) 0 0.1 Absolute Granulocytes (1.4 - 6.5 /CUMM) 10.2 H 10.2 H Absolute Lymphocytes (1.2 - 3.4 /CUMM) 1.3 1.1 L Absolute Monocytes (0.10 - 0.60 /CUMM) 1.5 H 1.5 H Absolute Eosinophils (0.0 - 0.7 /CUMM) 0 0 Absolute Basophils (0.0 - 0.2 /CUMM) 0 0 03/ 03 03/ 1430 0700 0000 Chemistry Sodium (137 - 145 mmol/L) 131 L Potassium (3.5 - 5.1 mmol/L) 4.2 Chloride (98 - 107 mmol/L) 95 L Carbon Dioxide (22 - 30 mmol/L) 22 Anion Gap (5 - 16) 14 BUN (9 - 20 mg/dL) 44 H Creatinine (0.7 - 1.2 mg/dL) 1.1 Estimated GFR (>60 ml/min) > 60 BUN/Creatinine Ratio (7 - 25 %) 40.0 H Iron (49 - 181 ug/dL) 58 TIBC (261 - 462 ug/dL) 290 Ferritin (17.9 - 464 ng/mL) 354.0 Vitamin B12 (239 - 931 pg/mL) 310 Folate (2.76 - 20.0 ng/mL) 7.4 Coagulation PT (9.4 - 12.5 SEC) 14.7 H INR (0.90 - 1.17) 1.34 H Hematology CBC w Diff NO MAN DIFF REQ Cancelled WBC (4.8 - 10.8 /CUMM) 12.4 H Cancelled RBC (4.70 - 6.10 /CUMM) 2.70 L Cancelled Hgb (14.0 - 18.0 G/DL) 8.1 L Cancelled Hct (42 - 52 %) 23.4 L Cancelled MCV (80.0 - 94.0 FL) 86.6 Cancelled MCH (27.0 - 31.0 PG) 29.8 Cancelled MCHC (33.0 - 37.0 G/DL) 34.5 Cancelled RDW (11.5 - 14.5 %) 13.7 Cancelled Plt Count (130 - 400 /CUMM) 262 Cancelled MPV (7.4 - 10.4 FL) 8.0 Cancelled Gran % (42.2 - 75.2 %) 78.2 H Lymphocytes % (20.5 - 51.1 %) 9.2 L Monocytes % (1.7 - 9.3 %) 12.6 H Eosinophils % (0 - 5 %) 0 Basophils % (0.0 - 2.0 %) 0 Absolute Granulocytes (1.4 - 6.5 /CUMM) 9.7 H Absolute Lymphocytes (1.2 - 3.4 /CUMM) 1.1 L Absolute Monocytes (0.10 - 0.60 /CUMM) 1.6 H Absolute Eosinophils (0.0 - 0.7 /CUMM) 0 Absolute Basophils (0.0 - 0.2 /CUMM) 0 04/30 2345 Hematology CBC w Diff NO MAN DIFF REQ WBC (4.8 - 10.8 /CUMM) 12.4 H RBC (4.70 - 6.10 /CUMM) 2.87 L Hgb (14.0 - 18.0 G/DL) 8.5 L Hct (42 - 52 %) 24.5 L MCV (80.0 - 94.0 FL) 85.5 MCH (27.0 - 31.0 PG) 29.6 MCHC (33.0 - 37.0 G/DL) 34.7 RDW (11.5 - 14.5 %) 13.6 Plt Count (130 - 400 /CUMM) 296 MPV (7.4 - 10.4 FL) 8.0 Gran % (42.2 - 75.2 %) 82.3 H Lymphocytes % (20.5 - 51.1 %) 8.6 L Monocytes % (1.7 - 9.3 %) 9.0 Eosinophils % (0 - 5 %) 0 Basophils % (0.0 - 2.0 %) 0.1 Absolute Granulocytes (1.4 - 6.5 /CUMM) 10.2 H Absolute Lymphocytes (1.2 - 3.4 /CUMM) 1.1 L Absolute Monocytes (0.10 - 0.60 /CUMM) 1.1 H Absolute Eosinophils (0.0 - 0.7 /CUMM) 0 Absolute Basophils (0.0 - 0.2 /CUMM) 0
[2017-05-03 21:37] VITALS: BP 146/70
--- NOTE | 2017-05-03 23:11 | PN- Cardiology ---
Subjective Subjective: * No complaints. Leg discomfort has imroved and no shortness of breath. * status post transfusion with persistent anemia * Patient remains mildly tachycardic * Following an episode of hematemesis the patient had an endoscopy showing a Kaylen-Mcgregor tear. He is now off anticoagulation and received an IVC filter. * Now on Tamiflu Objective Vital Signs and I&Os Vital Signs Date Time Temp Pulse Resp B/P B/P Pulse O2 O2 Flow FiO2 Mean Ox Delivery Rate 05/03 2136 98.2 111 18 146/70 97 05/03 2126 108 142/70 05/03 1600 Room Air 05/03 1355 98.0 106 18 140/70 96 05/03 0755 105 148/68 05/03 0636 98.9 105 18 148/68 97 Room Air 05/03 0000 Room Air Intake & Output 05/03 1600 05/03 0800 05/03 0000 05/02 1600 05/02 0800 05/02 0000 Intake Total 650 567 02 2945 110 300 Output Total 675 200 300 250 Balance 650 -575 -180 850 110 50 Intake, Blood 350 Product Intake, IV 20 10 Intake, Oral 650 100 800 100 300 Number 1 2 3 4 Bowel Movements Output, 150 Emesis Output, Stool 100 Output, Urine 575 50 300 250 Patient 184 lb 184 lb 184 lb Weight Weight Bed scale Bed scale Measurement Method Physical Exam: General: WD/WN male in NAD; alert and oriented x 3 HEENT: NC/AT, PERRL, EOMI Neck: no JVD, no carotid bruit Heart: tachycardic with regular rhythm, no murmurs Lungs: clear bilaterally Abdomen: soft, NT, +ve bowel sounds Extremities: no edema Assessment/Plan Assessment/Plan * Patient remains mildly tachycardic which may be due to persistent anemia and possibly to a PE, although a PE could not be unequivocally diagnosed by CT. He is now status post an IVC filter and anticoagulation is being held. * Monitor for hemodynamic stability and improvement in anemia. Continue Metoprolol to 25mg BID. Consider beginning erythropoietin. Continue telemetry? Yes
[2017-05-04 06:48] VITALS: BP 148/70
[2017-05-04 08:40] LABS: ABSOLUTE BASOPHIL COUNT 0 /CUMM (0.0-0.2); ABSOLUTE EOSINOPHIL COUNT 0 /CUMM (0.0-0.7); ABSOLUTE GRANULOCYTE CT 5.8 /CUMM (1.4-6.5); ABSOLUTE LYMPH COUNT 1.1 /CUMM (1.2-3.4); ABSOLUTE MONOCYTE COUNT 1.4 /CUMM (0.10-0.60); BASOPHIL % 0.1 % (0.0-2.0); EOSINOPHIL % 0.1 % (0-5); GRANULOCYTE % 69.5 % (42.2-75.2); HEMATOCRIT 24.4 % (42-52); MEAN CORPUSCULAR HGB 29.7 PG (27.0-31.0); MEAN CORPUSCULAR VOLUME 87.2 FL (80.0-94.0); MEAN PLATELET VOLUME 7.2 FL (7.4-10.4); PLATELET COUNT 354 /CUMM (130-400); RBC DISTRIBUTION WIDTH 13.9 % (11.5-14.5); WHITE BLOOD CELL COUNT 8.3 /CUMM (4.8-10.8)
--- NOTE | 2017-05-04 08:42 | PN- Housestaff ---
Paulino CHAVEZ,[facility] 05/04/17 0841: Subjective Follow-up For: Fall Syncope RLE DVT Tele-Events Since Last Visit: NSR 92-99 QRS .12 [place] .18 Subjective: No acute events overnight. Pt discussed about str with his sister and agreed to go. No pain, sob, weakness or dizzyness. Review of Systems Constitutional: Reports: no symptoms. Objective Last 24 Hrs of Vital Signs/I&O Vital Signs Date Time Temp Pulse Resp B/P B/P Pulse O2 O2 Flow FiO2 Mean Ox Delivery Rate 05/04 1441 98.4 97 20 148/70 05/04 1056 Room Air Room Air 05/04 0931 97 148/70 05/04 0800 97 Room Air 05/04 0648 98.4 99 20 148/70 97 Room Air 05/03 2137 98.2 111 18 146/70 97 05/03 2126 108 142/70 Intake & Output 05/04 1600 05/04 0800 05/04 0000 Intake Total 780 110 375 Output Total Balance 780 110 375 Intake, IV 10 Intake, Oral 780 100 375 Number 1 Bowel Movements Patient 182 lb Weight Physical Exam General Appearance: Alert, Oriented X3, Cooperative, No Acute Distress, pt deaf. communicates with writing. Cardiovascular: Regular Rate, Normal S1, Normal S2 Lungs: Clear to Auscultation, Normal Air Movement Abdomen: Soft, No Tenderness, distended abd, decreased BS Extremities: 2+ radial pulses Current Medications: Current Medications Sig/Tree Start time Last Medication Dose Route Stop Time Status Admin Acetaminophen 1,000 MG Q12 PRN 04/28 1815 AC 04/29 IV 0002 Albuterol Sulfate 3 ML Q6P PRN 05/02 1200 AC INH Albuterol Sulfate 2 PUF Q4 HRS NEEDED PRN 04/29 0315 AC INH Atorvastatin Calcium 40 MG 1700 04/28 1700 AC 05/03 PO 1743 Budesonide/ 2 PUF BID 04/28 2200 AC 05/04 Formoterol Fumarate INH 0932 Cyanocobalamin 1,000 MCG DAILY 05/02 1200 AC 05/04 PO 1217 Enoxaparin Sodium 80 MG BID 05/04 1130 AC 05/04 SC 1218 Ipratropium Eunice 2.5 ML Q6P PRN 05/02 1200 AC INH Metoclopramide HCl 10 MG Q6P PRN 04/30 1700 AC 05/01 IV 2306 Metoprolol Tartrate 25 MG BID 05/03 1000 AC 05/04 PO 0931 Morphine Sulfate 2 MG Q6P PRN 04/29 0415 AC 04/29 IV 2020 Omeprazole 40 MG ONCE ONE 05/04 1230 DC 05/04 PO 05/04 1231 1328 Oxycodone HCl 5 MG Q6P PRN 04/29 0415 AC 04/30 PO 2132 Pantoprazole Sodium 40 MG ONCE ONE 05/04 1200 CAN IV 05/04 1201 Pantoprazole Sodium 40 MG BID 04/30 1533 AC 05/03 IV 2123 Trimethobenzamide HCl 200 MG 4 TIMES/DAY PRN 05/03 2229 AC IM Trimethobenzamide HCl 200 MG 4 TIMES/DAY 05/01 1000 DC 05/03 IM 2123 Warfarin Sodium 5 MG COUMADIN 1700 ONE 05/04 1700 AC PO 05/04 1701 Last 24 Hrs of Lab/Titus Results Last 24 Hrs of Labs/Mics: Laboratory Tests 05/04/17 1144: PT 16.4 H, INR 1.50 H 05/04/17 1011: PT Cancelled, INR Cancelled 05/04/17 0622: CBC w Diff NO MAN DIFF REQ, RBC 2.80 L, MCV 87.2, MCH 29.7, MCHC 34.0, RDW 13.9 , MPV 7.2 L, Gran % 69.5, Lymphocytes % 13.4 L, Monocytes % 16.9 H, Eosinophils % 0.1, Basophils % 0.1, Absolute Granulocytes 5.8, Absolute Lymphocytes 1.1 L, Absolute Monocytes 1.4 H, Absolute Eosinophils 0, Absolute Basophils 0 Assessment/Plan Assessment: A: Mr. 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 P: #Anemia Anemia most likely 2/2 to GI bleed s/p EGD * tolerated regular diet, agreed to str. will be discharged today. since h/h stable, restarted anticoagulation with warfarin/lovenox bridging. * H/H remains stable s/p 1 prbc transfusion. * cont monitoring renal function * EGD revaeled kaylen verma tear * iron studies, folate b12 WNL but b12 borderline low. cont b12. * monitor H&H * hgb goal >8 * cont IV PPI BID * tigan scheduled as qtc >450 * follow GI recommendations regarding anticoagulation restart (currently holding per GI) and IVC filter retrieval #sinus tachy * patient in sinus tachy 100+. most likely 2/2 to anemia but possibly due to PE as patient has DVT. * consider PE if sinus tachy not resolved after adequate transfusion * increased metoprolol to 25 BID Fall with Syncope * Serial TROP/ECG to r/o ACS negative * ECHO demonstrated diastolic filling pattern is consistent with impaired LV relaxation. EF at 70%. * Orthostatics negative * Neuro checks q 4 * Cardio recommendations appreciated * Neuro recommendations appreciated * Continue home meds except Tizanidine * EEG normal RLE DVT * pt will need IR follow up in 1 month for directions to retrieve IVC filter * Doppler US demonstrated a deep venous thrombosis in the right lower extremity involving the femoral vein and popliteal vein s/p ivc filter. * Guaiac positive * f/u cardiology recs Hyponatremia * remains stable * cont to monitor Influenza * stopped tamiflu after 6 doses due to naseau and no longer having flu sx DVT prophylaxis: ALPS Problem List: 1. GI bleed 2. Kaylen-Verma tear 3. Tachycardia 4. DVT (deep venous thrombosis) 5. Syncope and collapse Pain Ratin Pain Location: none Pain Goal: Pain 4 or less Pain Plan: pain pathway Tomorrow's Labs & Rationales: none Martinez Dee 05/04/17 1442: Attending MD Review Statement Attending Statement Attending MD Statement: examined this patient, discuss w/resident/PA/USABILITY ENGINEER, agreed w/resident/PA/USABILITY ENGINEER, reviewed EMR data (avail), discussed with nursing, discussed with case mgmt Attending Assessment/Plan: Pt being dced to [facility] today in stable condition. His hb is stable. Pt was started on lovenox and coumadin. Pt will f/u with GI as an outpatient and IR for removal of IVC filter. d/w pt the care plan.
[2017-05-04] MEDS ORDERED: METOPROLOL TART25 M1 PO (08:55)
[2017-05-04] MEDS ORDERED: TIGAN300 MG PO (08:55)
[2017-05-04] MEDS ORDERED: PROTONIX40 M3 PO (08:55)
--- NOTE | 2017-05-04 08:57 | Patient Discharge Instructions ---
Discharge Instructions General Discharge Information Special Instructions: Please f/u with your pcp in 1 week. Please f/u with your vacuum caster in 1 week. Please follow up with your new GI specialist in 1 week (Dr. Lewis). Please follow up with interventional radiology (Dr. Quinteros) in 1 month for IVC filter removal instructions. Please monitor for any bleeding. Please stop your anticoagulation and contact your doctor for any signs of bleeding. Please continue your medications as perscribed. Acute Coronary Syndrome Inclusion Criteria At DC or during hospital stay patient has or had the following: ACS DIAGNOSIS No Discharge Core Measures Meds if any: Prescribed or Continued at Discharge Meds if any: NOT Prescribed or Continued at Discharge Congestive Heart Failure Inclusion Criteria At DC or during hospital stay patient has or had the following: CHF DIAGNOSIS No Discharge Core Measures Meds if any: Prescribed or Continued at Discharge Meds if any: NOT Prescribed or Continued at Discharge Cerebrovascular accident Inclusion Criteria At DC or during hospital stay patient has or had the following: CVA/TIA Diagnosis No Discharge Core Measures Meds if any: Prescribed or Continued at Discharge Meds if any: NOT Prescribed or Continued at Discharge Venous thromboembolism Inclusion Criteria VTE Diagnosis Yes VTE Type Deep Venous Thrombosis VTE Confirmed by (Test) UNILATERAL VENOUS DOPPLER Discharge Core Measures - Per Current guidelines, there needs to be overlap - treatment for the first 5 days of Warfarin therapy. - If discharged on Warfarin prior to 5 days of - overlap therapy, the patient will need to be - assessed for post discharge needs including - *Post discharge parental anticoagulation - *Warfarin and/or parental anticoagulation education - *Follow up date to check INR post discharge At least 5 days overlap therapy as Inpatient No Meds if any: Prescribed or Continued at Discharge Note: Overlap Therapy is Warfarin and Anticoagulant Meds if any: NOT Prescribed or Continued at Discharge
[2017-05-04] MEDS ORDERED: LOVENOX40 MG/0.1 SC (10:18)
[2017-05-04] MEDS ORDERED: COUMADIN5 M2 PO (10:21)
--- NOTE | 2017-05-04 10:58 | Discharge Summary ---
Visit Information Visit Dates Admission Date: 04/29/17 Discharge Date: 05/04/17 Hospital Course Course Attending Physician: Luiz CHAVEZ,Martinez Aburto Primary Care Physician: Vera CHAVEZ,Monica Hinton Hospital Course: Mr. Gibbs is 71 year old male with PMH of deaf (can read lips), HTN, asthma, prostate cancer status post prostatectomy BIBA for syncope. This was preceded by symptoms of upper respiratory infection and decreased oral intake for 2 days. On admission patient was found to have flu positive. Patient was admitted to tele floor for following problems: Dizziness and syncopal attack: Serial TROP/ECG to r/o ACS negative, ECHO demonstrated diastolic filling pattern is consistent with impaired LV relaxation. EF at 70%. Orthostatics measurment negative. TSH within normal limits. Patient was recently started on tizanidine 3 times a day for muscle spasm that might precipitate his syncopal attack, medication was discontinued on admission. EEG was obtained and had normal recording in the awake and drowsy state. Influenza B positive: Patient was found to have flu B positive, started on Tamiflu however had recurrent nausea and vomiting. Patient received a total of 6 doses of Tamiflu and was discontinued because of nausea vomiting despite antiemetic. Symptoms improved. Anemia: Patient had drop in HH from 13/39 to 7.5/22, GI related. He recevied 1 PRBC and H/H improved and remained stable, on discharge 8.3/24.4 Right lower extermity discomfort: Doppler US was obatined and demonstrated a deep venous thrombosis in the right lower extremity involving the femoral vein and popliteal vein, patient was started on IV Heparin. CTA demonstrated No definite pulmonary embolism however small filling defect within a segmental branch of the right upper lobe that could represent artifact related to extensive beam hardening when viewed on the multiple multiplanar reformations. Patient had Guaiac positive stool and developed nausea, and vomiting several times, brown to black in color associated with drop in his hematocrit. EGD was obtained in 05/01/17 that showed Kaylen- Mcgregor tear with no active bleeding, nor old blood. IVC filater was placed by IR on 05/01/17 (retrievable IVC filter) and heparin IV discontinued. Patient was satrted on lovonex upon discharge with bridge to warfarin after cleared by GI. Patient tolerated regular diet well after EGD. Tachycardia: Patient was noticed to have sinus tachycardia during hospital admission, initial thoughts were because of anemia and/or DVT and PE however despite treating other causes patient continued to have sinus tachycardia. Cardiology consultation was obtained with recommendation to start metoprolol titrate, dose was increased to 25 mg BID. Allergies: Coded Allergies: peanut (Severe, ANAPHYLAXIS 04/28/17) nut - unspecified (ANAPHYLAXIS 04/28/17) Disposition Summary Disposition Principal Diagnosis: Syncope Additional Diagnosis: DVT right upper extremity Influenza B positive Sinus tachycardia, Kaylen-Mcgregor tear Discharge Disposition: SNF Discharge Instructions General Discharge Information Code Status: Full Code Patient's Diet: Heart healthy diet Patient's Activity: As tolerated Follow-Up Instructions/Appts: Please f/u with your pcp in 1 week. Please f/u with your body finisher in 1 week. Please follow up with your new GI specialist in 1 week (Dr. Lewis). Please follow up with interventional radiology (Dr. Quinteros) in 1 month for IVC filter removal instructions. Please monitor for any bleeding. Please stop your anticoagulation and contact your doctor for any signs of bleeding. Please continue your medications as perscribed. Medications at Discharge Discharge Medications: Stop taking the following medications: Tizanidine HCl (Tizanidine HCl) 2 MG TABLET ORAL THREE TIMES DAILY as needed for MUSCLE SPASMS Qty = 30 Continue taking these medications: Quinapril HCl (Quinapril HCl) 40 MG TABLET 1 Tablet ORAL TWICE DAILY Qty = 60 Comments: Last Taken: NOT GIVEN IN HOSPITAL Time: Fluticasone/Salmeterol (Advair 500-50 Diskus) 500 MCG-50 MCG/DOSE BLST.W.DEV 1 Puff Inhale through mouth TWICE DAILY Qty = 60 Comments: Last Taken: 05/04/17 Time: 0930 (RECEIVED SYMBICORT) Albuterol Sulfate (Proair Respiclick) 90 MCG AER.POW.BA 2 PUFF Inhale through mouth As Directed as needed for RESP. Qty = 1 Comments: Last Taken: NOT GIVEN IN HOSPITAL Time: Rosuvastatin Calcium (Crestor) 10 MG TABLET 1 Tablet ORAL DAILY Qty = 30 Comments: Last Taken: 05/03/17 Time: 1740 Cholecalciferol (Vitamin D3) (Vitamin D) (Unknown Strength) TABLET Unknown Dose ORAL DAILY Comments: Last Taken: NOT GIVEN IN HOSPITAL Time: Cyanocobalamin (Vitamin B-12) (Unknown Strength) TABLET Unknown Dose ORAL DAILY Comments: Last Taken: 05/04/17 Time: 1215 Start taking the following new medications: Metoprolol Tartrate (Metoprolol Tartrate) 25 MG TABLET 1 Tablet ORAL TWICE DAILY Qty = 60 No Refills Comments: Last Taken: 05/04/17 Time: 0930 Trimethobenzamide HCl (Tigan) 300 MG CAPSULE 1 Tablet ORAL EVERY SIX HOURS as needed for [place] Qty = 30 No Refills Comments: Last Taken: 05/03/17 Time: 2125 Pantoprazole Sodium (Protonix) 40 MG TABLET.DR 1 Tablet ORAL DAILY Qty = 30 No Refills Comments: Last Taken: 05/04/17 Time: 1245 Enoxaparin Sodium (Lovenox) 40 MG/0.4 ML SYRINGE 2 Syringe Inject into fatty tissue TWICE DAILY Qty = 60 No Refills Instructions: LOVENOX 80MG BID WITH WARFARIN UNTIL INR >2.0. ONCE INR IS ABOVE 2.0 STOP THE LOVENOX AND CONTINUE WARFARIN DAILY. Comments: Last Taken: 05/04/17 Time: 1215 Warfarin Sodium (Coumadin) 5 MG TABLET 1 Tablet ORAL DAILY Qty = 30 No Refills Instructions: CHECK INR DAILY AND KEEP INR 2.0-3.0 RANGE. Comments: Last Taken: NOT GIVEN IN HOSPITAL. TO START AT 1700 Time: Copies To: Duglas CHAVEZ,Donald Aburto; Joshua CHAVEZ,Angelito Villalpando; Casper CHAVEZ PHD,Dangelo Aburto
[2017-05-04 12:06] LABS: PT 16.4 SEC (9.4-12.5)
[2017-05-04 14:41] VITALS: BP 148/70
== END 2017-05-04 16:20 | DRG 252 ==
LOC: ERH 12:07 → ERHI 14:32 → ENRESERV 16:14 → ENTRNSPT 17:09 → EDTRNSPTSTS 17:16 → 1NO 17:32 → CMPTRNSPT 17:43 → 1NO 04-29 15:23 → ENPENDDIS 05-04 11:33 → 1NO 05-04 16:20
PROVIDERS: Hospitalist; Internal Medicine; Internal Medicine Adolescent Medicine; Physician Assistant Medical; Student in an Organized Health Care Education/Training Program
PROC: 06H03DZ Insertion of Intraluminal Device into Inferior Vena Cava, Percutaneous Approach (ICD-10-PCS; principal; 2017-05-01)
PROC: 0DJ08ZZ Inspection of Upper Intestinal Tract, Via Natural or Artificial Opening Endoscopic (ICD-10-PCS; 2017-05-01)
PROC: 30233P1 Transfusion of Nonautologous Frozen Red Cells into Peripheral Vein, Percutaneous Approach (ICD-10-PCS; 2017-05-02)
DX: I82.411 Acute embolism and thrombosis of right femoral vein (principal); K22.6 Gastro-esophageal laceration-hemorrhage syndrome; D62 Acute posthemorrhagic anemia; E87.1 Hypo-osmolality and hyponatremia; I82.431 Acute embolism and thrombosis of right popliteal vein; E86.0 Dehydration; J10.1 Influenza due to other identified influenza virus with other respiratory manifestations; H91.3 Deaf nonspeaking, not elsewhere classified; I10 Essential (primary) hypertension; J45.909 Unspecified asthma, uncomplicated; T42.8X5A Adverse effect of antiparkinsonism drugs and other central muscle-tone depressants, initial encounter; I95.1 Orthostatic hypotension; W18.30XA Fall on same level, unspecified, initial encounter; Z79.51 Long term (current) use of inhaled steroids; Z85.46 Personal history of malignant neoplasm of prostate; R00.0 Tachycardia, unspecified
CPT/HCPCS: 04007; 1NP; 36592; 71046; 72170; 73502-RT; 82436; 86920; 87070; 87804; 87804-59; 93005; 93010; 93306; 95816; 97110-GO; 97116-GO; 97161-GP; 97530-GO; C1725; C1769; C1880; J0131; J1644; J1650; J2405; J2765; J3250; J3490; J7040; P9016; Q9967